=== PATIENT | female | born 1950 | race Hispanic/Latino ===

== ENCOUNTER 2016-08-30 08:50 | Outpatient (CLI) | payer MEDICARE | END 2016-08-30 08:51 | disposition home or self-care (01) | LOC: LAB 08:50 | PROVIDERS: ATTEND Internal Medicine | DX: I10 Essential (primary) hypertension (principal); J44.9 Chronic obstructive pulmonary disease, unspecified; M81.0 Age-related osteoporosis without current pathological fracture; E78.00 Pure hypercholesterolemia, unspecified; J45.909 Unspecified asthma, uncomplicated; F32.9 Major depressive disorder, single episode, unspecified; F41.9 Anxiety disorder, unspecified; Z79.899 Other long term (current) drug therapy; Z87.891 Personal history of nicotine dependence | CPT/HCPCS: 36415; 80061; 83036 ==

== ENCOUNTER 2017-07-08 20:54 | Inpatient (IN) | payer MEDICARE ==
[2017-07-08] MEDS ORDERED: ATROVENT IH ONE (21:16)
[2017-07-08] MEDS ORDERED: PROVENTIL IH ONE (21:16)
[2017-07-08 21:55] LABS: Basophils % (Auto) 0.1 % (0.0-1.8); Hematocrit 31.7 % (30.3-42.9); Hemoglobin 10.7 gm/dl (10.1-14.3); Lymphocytes # (Auto) 0.6 K/mm3 (1.2-5.4); Lymphocytes % (Auto) 7.6 % (13.4-35.0); Mean Corpuscular HGB Conc 34 % (30-34); Mean Corpuscular Hemoglobin 29 pg (28-32); Mean Corpuscular Volume 87 fl (79-97); Monocytes # (Auto) 0.3 K/mm3 (0.0-0.8); Monocytes % (Auto) 3.7 % (0.0-7.3); Platelet Count 376 K/mm3 (140-440); Red Blood Count 3.63 M/mm3 (3.65-5.03); Red Cell Distribution Width 16.5 % (13.2-15.2)
[2017-07-08 22:10] LABS: INR 0.8 (0.87-1.13)
[2017-07-08 22:16] LABS: Alanine Aminotransferase 12 units/L (7-56); Albumin 4.1 g/dL (3.9-5); BUN/Creatinine Ratio 23; Blood Urea Nitrogen 21 mg/dL (7-17); Calcium 8.9 mg/dL (8.4-10.2); Hemolysis Index 3
[2017-07-08] MEDS ORDERED: MAGNESIUM SULFATE 2GM/50ML 2 GM/50 ML BAG IV ONE (22:43)
--- NOTE | 2017-07-08 22:55 | Emergency Department Report ---
ED Shortness of Breath HPI - General Chief Complaint: Dyspnea/Respdistress Stated Complaint: SOB; WHEEZING Time Seen by Provider: 07/08/17 22:27 Source: patient Mode of arrival: Ambulatory Limitations: No Limitations - History of Present Illness Initial Comments: 67-year-old female with a past medical history of COPD and asthma currently on 2.5-3 L of home oxygen presents to the hospital with complaints of progressively worsening shortness of breath, cough, and wheezing for the last 3 weeks. She has been seeing her chocolate coater Dr. Brady. She recently completed a course of steroids and azithromycin within the last 3 weeks and was represcribed additional antibiotics and steroids on repeat visit on July 04. This time around patient was started on cefdinir 300 mg and a repeat prednisone taper. Patient complains of cough occasionally productive of white and light green sputum. She denies documented fever. No complaints of pain. Patient also states she has a history of the left lung nodule is being monitored by intermit and CAT scans by Dr. Brady. No leg edema or calf tenderness reported. PMD: Dr. Evy Law. - Related Data Home Medications Medication Instructions Recorded Confirmed Last Taken Albuterol Sulfate [Albuterol 0.63% 3 ml INHALATION TID 12/11/13 08/02/16 NEBS] Montelukast (Nf) [Singulair] 10 mg PO DAILY 12/11/13 08/02/16 07/30/16 Tiotropium [Spiriva] 1 cap INHALATION DAILY 12/11/13 08/02/16 07/30/16 clonazePAM 1 tab PO Q8HR PRN 12/11/13 08/04/16 07/30/16 ALBUTEROL Inhaler [ProAir HFA 2 puff IH QID PRN 02/02/16 08/02/16 07/30/16 Inhaler] Azelastine 0.1% (Nf) [Astelin (Nf)] 1 spray INNOSTRIL QAM 02/02/16 08/02/1604/16 Cholecalciferol (Vitamin D3) 2,000 unit PO QDAY 02/02/16 08/02/16 07/30/16 [Vitamin D3 2,000 unit] [place]-3S/Dha/Epa/Fish Oil/D3 1 each PO DAILY 02/02/16 08/02/16 07/30/16 [[place]-3 + D Softgel] Omeprazole 40 mg PO DAILY 02/02/16 08/02/16 07/30/16 Vitamin B Complex 1 tab PO DAILY 02/02/16 08/02/16 07/30/16 guaiFENesin [Mucinex] 600 mg PO QAM 02/02/16 08/02/16 07/30/16 Previous Rx's Medication Instructions Recorded Last Taken Type Prednisone [predniSONE 10 mg 10 mg PO .TAPER #1 tab.ds.pk 02/05/16 Unknown Rx (6-Day Pack, 21 Tabs)] Budesoni/Formotero 160-4.5(Nf) 2 puff IH BID 30 Days inha 08/11/16 Unknown Rx [Symbicort 160-4.5 (Nf)] Fluticasone [Flonase] 100 mcg NS QDAY PRN #1 bottle 08/11/16 Unknown Rx Prednisone [predniSONE 10 mg 10 mg PO .TAPER #1 tab.ds.pk 08/11/16 Unknown Rx (6-Day Pack, 21 Tabs)] Allergies Allergy/AdvReac Type Severity Reaction Status Date / Time codeine Allergy Nausea Verified 12/11/13 13:20 ED Review of Systems ROS: Stated complaint: SOB; WHEEZING Other details as noted in HPI Comment: All other systems reviewed and negative ED Past Medical Hx - Past Medical History Hx Hypertension: No Hx Arthritis: No Hx Asthma: Yes Hx COPD: Yes Hx Tuberculosis: No Hx HIV: No - Surgical History Hx Appendectomy: Yes - Social History Smoking Status: Never Smoker Substance Use Type: None - Medications Home Medications: Home Medications Medication Instructions Recorded Confirmed Last Taken Type Albuterol Sulfate [Albuterol 0.63% 3 ml INHALATION TID 12/11/13 08/02/16 History NEBS] Montelukast (Nf) [Singulair] 10 mg PO DAILY 12/11/13 08/02/16 07/30/16 History Tiotropium [Spiriva] 1 cap INHALATION DAILY 12/11/13 08/02/16 07/30/16 History clonazePAM 1 tab PO Q8HR PRN 12/11/13 08/04/16 07/30/16 History ALBUTEROL Inhaler [ProAir HFA 2 puff IH QID PRN 12/07/1308/02/16 07/30/16 History Inhaler] Azelastine 0.1% (Nf) [Astelin (Nf)] 1 spray INNOSTRIL QAM 02/02/16 08/02/1604/16 History Cholecalciferol (Vitamin D3) 2,000 unit PO QDAY 02/02/16 08/02/16 07/30/16 History [Vitamin D3 2,000 unit] [place]-3S/Dha/Epa/Fish Oil/D3 1 each PO DAILY 02/02/16 08/02/16 07/30/16 History [[place]-3 + D Softgel] Omeprazole 40 mg PO DAILY 02/02/16 08/02/16 07/30/16 History Vitamin B Complex 1 tab PO DAILY 02/02/16 08/02/16 07/30/16 History guaiFENesin [Mucinex] 600 mg PO QAM 02/02/16 08/02/16 07/30/16 History Prednisone [predniSONE 10 mg 10 mg PO .TAPER #1 tab.ds.pk 02/05/16 08/02/16 Unknown Rx (6-Day Pack, 21 Tabs)] Budesoni/Formotero 160-4.5(Nf) 2 puff IH BID 30 Days inha 08/11/16 Unknown Rx [Symbicort 160-4.5 (Nf)] Fluticasone [Flonase] 100 mcg NS QDAY PRN #1 bottle 08/11/16 Unknown Rx Prednisone [predniSONE 10 mg 10 mg PO .TAPER #1 tab.ds.pk 08/11/16 Unknown Rx (6-Day Pack, 21 Tabs)] ED Physical Exam - General Limitations: No Limitations - Other Other exam information: General: No limitations, patient is alert in no acute distress Head exam: Atraumatic, normocephalic Eyes exam: Normal appearance, pupils equal reactive to light, extraocular movements intact ENT: Moist mucous membrane, normal oropharynx Neck exam: Normal inspection, full range of motion, no meningismus nontender Respiratory exam: Bilateral wheezing, mild tachypnea, no accessory muscle use. Satting 97% on 3 L of supplemental oxygen Cardiovascular: Normal rate and rhythm, normal heart sounds Abdomen: Soft, nondistended, and nontender, with normal bowel sounds, no rebound, or guarding Extremity: Full range of motion normal inspection no deformity, no calf tenderness or edema Back: Normal Inspection, full range of motion, no tenderness Neurologic: Alert, oriented x3, cranial nerves intact, no motor or sensory deficit Psychiatric: normal affect, normal mood Skin: Warm, dry, intact ED Course Vital Signs 07/08/17 07/08/17 07/08/17 20:58 21:11 22:48 Temperature 98.4 F 98.4 F Pulse Rate 111 H 115 H Pulse Rate [ 86 Posterior Bilateral Throughout] Respiratory 16 16 Rate Respiratory 20 Rate [Posterior Bilateral Throughout] Blood Pressure 144/65 144/68 O2 Sat by Pulse 87 88 Oximetry - Consultations Consultation #1: 07/08/17 23:[address] Brady ordered but I did not discuss patient's case. Patient does not need emergent pulmonary consultation therefore could be consulted during admission ED Medical Decision Making - Lab Data Result diagrams: 07/08/17 21:29 07/08/17 21:29 Lab Results 07/08/17 07/08/17 07/08/17 Range/Units 21:29 21:29 21:29 WBC 8.4 (4.5-11.0) K/mm3 RBC 3.63 L (3.65-5.03) M/mm3 Hgb 10.7 (10.1-14.3) gm/dl Hct 31.7 (30.3-42.9) % MCV 87 (79-97) fl MCH 29 (28-32) pg MCHC 34 (30-34) % RDW 16.5 H (13.2-15.2) % Plt Count 376 (140-440) K/mm3 Lymph % (Auto) 7.6 L (13.4-35.0) % [place] % (Auto) 3.7 (0.0-7.3) % Eos % (Auto) 0.0 (0.0-4.3) % Baso % (Auto) 0.1 (0.0-1.8) % Lymph # 0.6 L (1.2-5.4) K/mm3 [place] # 0.3 (0.0-0.8) K/mm3 Eos # 0.0 (0.0-0.4) K/mm3 Baso # 0.0 (0.0-0.1) K/mm3 Seg Neutrophils % 88.6 H (40.0-70.0) % Seg Neutrophils # 7.5 (1.8-7.7) K/mm3 PT 11.4 L (12.2-14.9) Sec. INR 0.80 L (0.87-1.13) Sodium 143 (137-145) mmol/L Potassium 4.0 (3.6-5.0) mmol/L Chloride 96.9 L (98-107) mmol/L Carbon Dioxide 33 H (22-30) mmol/L Anion Gap 17 mmol/L BUN 21 H (7-17) mg/dL Creatinine 0.9 (0.7-1.2) mg/dL Estimated GFR > 60 ml/min BUN/Creatinine Ratio 23 % Glucose 203 H (65-100) mg/dL Calcium 8.9 (8.4-10.2) mg/dL Total Bilirubin 0.20 (0.1-1.2) mg/dL AST 15 (5-40) units/L ALT 12 (7-56) units/L Alkaline Phosphatase 64 (35-129) units/L Troponin T < 0.010 (0.00-0.029) ng/mL Total Protein 6.7 (6.3-8.2) g/dL Albumin 4.1 (3.9-5) g/dL Albumin/Globulin Ratio 1.6 % - EKG Data -: EKG Interpreted by Ct EKG shows normal: sinus rhythm, axis (qrs 79), QRS complexes (qrsd 87), ST-T waves (no stemi/t inv) Rate: normal (96) - EKG Data When compared to previous EKG there are: no significant change - Radiology Data Radiology results: image reviewed (cxr: naf (offical report pending)) - Medical Decision Making In the ED patient treated with additional albuterol, aspirin, IV Solu-Medrol, and IV magnesium Patient has already been on antibiotics and steroids with outpatient and continues to have symptoms Due to continued symptoms and failed outpatient management patient be admitted to the hospital for further management and pulmonology consultation. - Differential Diagnosis COPD, pneumonia, asthma, bronchitis Critical Care Time: No Critical care attestation.: If time is entered above; I have spent that time in minutes in the direct care of this critically ill patient, excluding procedure time. ED Disposition Clinical Impression: COPD exacerbation, Failure of outpatient treatment Disposition: OP ADMIT IP TO THIS HOSP Is pt being admited?: Yes Condition: Stable Referrals: PRIMARY CARE, [Primary Care Provider] - 3-5 Days Time of Disposition: 23:12 (Dr Irving/hospitalist)
--- NOTE | 2017-07-08 23:43 | XRay Report ---
FINAL REPORT PROCEDURE: XR CHEST ROUTINE 2V TECHNIQUE: PA and lateral chest radiographs were obtained. CPT 23577 HISTORY: Shortness of breath. COMPARISON: Chest radiograph dated 08/01/2016 FINDINGS: Heart: Normal. Mediastinum/Vessels: Aortic tortuosity and calcification. Lungs/Pleural space: Hyperinflation. Minimal bibasilar linear opacities. Subtle 10 mm density about the left anterior 4th rib. Symmetric biapical pleural thickening Bony thorax: Osteopenia. Thoracic kyphosis. Mild to moderate compression thoracic vertebral body compression in the mid thoracic spine. Mild compression in the lower thoracic/upper lumbar spine. Other: IMPRESSION: Aortic tortuosity and calcification. Hyperinflation suggests obstructive physiology. Bibasilar linear opacities, consider atelectasis or mild fibrosis. Subtle density about the anterior left 4th rib, consider could be confluence of shadows, pulmonary nodule, or in the rib. Consider CT scan for further characterization if there is continued clinical concern.
[2017-07-08] MEDS ORDERED: SODIUM CHLORIDE FLUSH SYRINGE 10 ML IV PRN (23:45)
[2017-07-08] MEDS ORDERED: ZOFRAN IV PRN (23:45)
--- NOTE | 2017-07-08 23:47 | History and Physical Report ---
History of Present Illness Date of examination: 07/08/17 History of present illness: 67 year-old woman with a history of COPD on home oxygen came to the emergency room today she developed shortness of breath, cough productive of white phlegm. 3 weeks ago she was started on prednisone pack, with Z-Manuel, her symptoms improved mildly and was given another course of antibiotics and steroids stapled which she has just completed. Shortness of breath got worse today so she came to the emergency room for further evaluation Review Of Systems: Constitutional: no weight loss Ears, eyes, nose, mouth and throat: no nasal congestion, no nasal discharge, no sinus pressure, blurry vision, diplopia Neck: No neck pain or rigidity. Cardiovascular: no Chest pain, orthopnea, palpitations Respiratory: + shortness of breath, cough Gastrointestinal: no abdominal pain, hematochezia Genitourinary : no dysuria, frequency , hematuria Musculoskeletal: no muscle ache Integumentary: no rash, no pruritis Neurological: no parathesias, focal weakness Endocrine: no cold or heat intolerance, no polyuria or polydipsia Hematologic/Lymphatic: no easy bruising, no easy bleeding, no gland swelling Allergic/Immunologic: no urticaria, no angioedema. PAST SURGICAL HISTORY: Tonsillectomy, hysterectomy SOCIAL HISTORY: Denies tobacco, drugs, alcohol use FAMILY HISTORY: Hypertension Medications and Allergies Allergies Allergy/AdvReac Type Severity Reaction Status Date / Time codeine Allergy Nausea Verified 12/11/13 13:20 Home Medications Medication Instructions Recorded Confirmed Last Taken Type Albuterol Sulfate [Albuterol 0.63% 3 ml INHALATION TID 12/11/13 08/02/16 History NEBS] Montelukast (Nf) [Singulair] 10 mg PO DAILY 12/11/13 08/02/16 07/30/16 History Tiotropium [Spiriva] 1 cap INHALATION DAILY 12/11/13 08/02/16 07/30/16 History clonazePAM 1 tab PO Q8HR PRN 12/11/13 08/04/16 07/30/16 History ALBUTEROL Inhaler [ProAir HFA 2 puff IH QID PRN 02/02/16 08/02/16 07/30/16 History Inhaler] Azelastine 0.1% (Nf) [Astelin (Nf)] 1 spray INNOSTRIL QAM 02/02/16 08/02/1604/16 History Cholecalciferol (Vitamin D3) 2,000 unit PO QDAY 02/02/16 08/02/16 07/30/16 History [Vitamin D3 2,000 unit] [place]-3S/Dha/Epa/Fish Oil/D3 1 each PO DAILY 02/02/16 08/02/16 07/30/16 History [[place]-3 + D Softgel] Omeprazole 40 mg PO DAILY 02/02/16 08/02/16 07/30/16 History Vitamin B Complex 1 tab PO DAILY 02/02/16 08/02/16 07/30/16 History guaiFENesin [Mucinex] 600 mg PO QAM 02/02/16 08/02/16 07/30/16 History Prednisone [predniSONE 10 mg 10 mg PO .TAPER #1 tab.ds.pk 02/05/16 08/02/16 Unknown Rx (6-Day Pack, 21 Tabs)] Budesoni/Formotero 160-4.5(Nf) 2 puff IH BID 30 Days inha 08/11/16 Unknown Rx [Symbicort 160-4.5 (Nf)] Fluticasone [Flonase] 100 mcg NS QDAY PRN #1 bottle 08/11/16 Unknown Rx Prednisone [predniSONE 10 mg 10 mg PO .TAPER #1 tab.ds.pk 08/11/16 Unknown Rx (6-Day Pack, 21 Tabs)] Exam - Physical Exam Narrative exam: Gen. appearance: Patient lying in bed, no apparent distress HEENT: Normocephalic, atraumatic, pupils equally round and reactive to light, extraocular movement intact, and no sclericterus,. No JVD or thyromegaly or nodule,neck supple, no carotid bruit ,mucous membranes moist, no exudate or erythema Heart: S1, S2, regular rate and rhythm Lungs: Clear to auscultation bilaterally, breathing comfortable Abdomen: Positive bowel sounds, nontender, nondistended, no organomegaly Extremity: No edema, cyanosis, clubbing Skin: No rash, nodules, warm, dry Neuro: Oriented 3, cranial nerves II-12 intact, speech is fluent, motor and sensory intact - Constitutional Vitals: Temp Pulse Resp BP Pulse Ox 98.4 F 86 20 144/68 88 07/08/17 21:11 07/08/17 22:48 07/08/17 22:48 07/08/17 21:11 07/08/17 21:11 Results - Labs CBC & Chem 7: 07/08/17 21:29 07/08/17 21:29 Labs: Abnormal lab results 07/08/17 07/08/17 07/08/17 Range/Units 21:29 21:29 21:29 RBC 3.63 L (3.65-5.03) M/mm3 RDW 16.5 H (13.2-15.2) % Lymph % (Auto) 7.6 L (13.4-35.0) % Lymph # 0.6 L (1.2-5.4) K/mm3 Seg Neutrophils % 88.6 H (40.0-70.0) % PT 11.4 L (12.2-14.9) Sec. INR 0.80 L (0.87-1.13) Chloride 96.9 L (98-107) mmol/L Carbon Dioxide 33 H (22-30) mmol/L BUN 21 H (7-17) mg/dL Glucose 203 H (65-100) mg/dL Assessment and Plan Assessment Acute COPD exacerbation Osteoporosis Plan Admit to medicine Start high-dose steroids, nebulizer treatment DVT prophylaxis
[2017-07-09 00:26] LABS: Bilirubin,Urine NEG (Negative); Blood,Urine NEG (Negative); Color,Urine Yellow (Yellow); Mucus,Urine FEW /HPF; Protein,Urine <15 mg/dL mg/dL (Negative); Urobilinogen,Urine < 2.0 mg/dL (<2.0)
[2017-07-09] MEDS ORDERED: DUONEB *Not for PRN Use IH SCH (02:00)
[2017-07-09] MEDS ORDERED: DUONEB *Not for PRN Use IH ONE (02:18)
[2017-07-09 06:55] LABS: BUN/Creatinine Ratio 28; Blood Urea Nitrogen 17 mg/dL (7-17); Calcium 8.4 mg/dL (8.4-10.2); Hemolysis Index 7
[2017-07-09 07:03] LABS: Hematocrit 31.3 % (30.3-42.9); Hemoglobin 10.3 gm/dl (10.1-14.3); Lymphocytes % (Auto) 9.2 % (13.4-35.0); Mean Corpuscular HGB Conc 33 % (30-34); Mean Corpuscular Hemoglobin 29 pg (28-32); Mean Corpuscular Volume 88 fl (79-97); Mean Platelet Volume 7.5 fl (6-12); Monocytes % (Auto) 1.9 % (0.0-7.3); Platelet Count 361 K/mm3 (140-440); Red Blood Count 3.57 M/mm3 (3.65-5.03); Red Cell Distribution Width 16.2 % (13.2-15.2)
[2017-07-09 07:04] LABS: Lymphocytes # (Auto) 0.7 K/mm3 (1.2-5.4); Monocytes # (Auto) 0.1 K/mm3 (0.0-0.8)
[2017-07-09] MEDS: DUONEB *Not for PRN Use IH SCH ×4 (08:20→20:45)
[2017-07-09] MEDS ORDERED: LOVENOX SUB-Q SCH (10:00)
[2017-07-09] MEDS: SODIUM CHLORIDE FLUSH SYRINGE 10 ML IV SCH ×2 (11:03→21:56)
[2017-07-09] MEDS: LOVENOX SUB-Q SCH (11:03)
--- NOTE | 2017-07-09 12:52 | Progress Note ---
Assessment and Plan Assessment and plan: Acute on chronic respiratory failure due to COPD exacerbation. Supplemental Oxygen COPD exacerbation. Continue supplemental Oxygen, solu-medrol, Duoneb, Albuterol prn DVT prophylaxis with Lovenox Full code status History Interval history: Less shortness of brreath, No chest pain no fever Hospitalist Physical - Physical exam Narrative exam: General:Not in acute distress, lying in bed, HEENT: Normocephalic, atraumatic Neck:supple,no JVD Lungs: Decreased breath sounds, bilateral rhonchi, wheeze Heart:S1 and S2 regular, no murmurs, rubs or gallop Abd: soft, non tender,non distended, normal bowel sounds Ext: No edema, no clubbing or cyanosis Neuro:Awake,alert,oriented x 3, moves all extremities, Psych:normal mood - Constitutional Vitals: Temp Pulse Resp BP Pulse Ox 98.5 F 98 H 18 120/44 94 07/09/17 07:16 07/09/17 08:40 07/09/17 08:40 07/09/17 07:16 07/09/17 08:20 Results - Labs CBC & Chem 7: 07/09/17 06:13 07/09/17 06:13 Labs: Laboratory Last Values WBC 7.1 K/mm3 (4.5-11.0) 07/09/17 06:13 RBC 3.57 M/mm3 (3.65-5.03) L 07/09/17 06:13 Hgb 10.3 gm/dl (10.1-14.3) 07/09/17 06:13 Hct 31.3 % (30.3-42.9) 07/09/17 06:13 MCV 88 fl (79-97) 07/09/17 06:13 MCH 29 pg (28-32) 07/09/17 06:13 MCHC 33 % (30-34) 07/09/17 06:13 RDW 16.2 % (13.2-15.2) H 07/09/17 06:13 Plt Count 361 K/mm3 (140-440) 07/09/17 06:13 Lymph % (Auto) 9.2 % (13.4-35.0) L 07/09/17 06:13 [place] % (Auto) 1.9 % (0.0-7.3) 07/09/17 06:13 Eos % (Auto) 0.0 % (0.0-4.3) 07/09/17 06:13 Baso % (Auto) 0.0 % (0.0-1.8) 07/09/17 06:13 Lymph # 0.7 K/mm3 (1.2-5.4) L 07/09/17 06:13 [place] # 0.1 K/mm3 (0.0-0.8) 07/09/17 06:13 Eos # 0.0 K/mm3 (0.0-0.4) 07/09/17 06:13 Baso # 0.0 K/mm3 (0.0-0.1) 07/09/17 06:13 Seg Neutrophils % 88.9 % (40.0-70.0) H 07/09/17 06:13 Seg Neutrophils # 6.3 K/mm3 (1.8-7.7) 07/09/17 06:13 PT 11.4 Sec. (12.2-14.9) L 07/08/17 21:29 INR 0.80 (0.87-1.13) L 07/08/17 21:29 Sodium 142 mmol/L (137-145) 07/09/17 06:13 Potassium 4.3 mmol/L (3.6-5.0) 07/09/17 06:13 Chloride 100.0 mmol/L (98-107) 07/09/17 06:13 Carbon Dioxide 31 mmol/L (22-30) H 07/09/17 06:13 Anion Gap 15 mmol/L 07/09/17 06:13 BUN 17 mg/dL (7-17) 07/09/17 06:13 Creatinine 0.6 mg/dL (0.7-1.2) L 07/09/17 06:13 Estimated GFR > 60 ml/min 07/09/17 06:13 BUN/Creatinine Ratio 28 % 07/09/17 06:13 Glucose 146 mg/dL (65-100) H 07/09/17 06:13 Calcium 8.4 mg/dL (8.4-10.2) 07/09/17 06:13 Total Bilirubin 0.20 mg/dL (0.1-1.2) 07/08/17 21:29 AST 15 units/L (5-40) 07/08/17 21:29 ALT 12 units/L (7-56) 07/08/17 21:29 Alkaline Phosphatase 64 units/L (35-129) 07/08/17 21:29 Troponin T < 0.010 ng/mL (0.00-0.029) 07/08/17 21:29 Total Protein 6.7 g/dL (6.3-8.2) 07/08/17 21: Albumin 4.1 g/dL (3.9-5) 07/08/17 21:29 Albumin/Globulin Ratio 1.6 % 07/08/17 21:29 Urine Color Yellow (Yellow) 07/08/17 Unknown Urine Turbidity Clear (Clear) 07/08/17 Unknown Urine pH 5.0 (5.0-7.0) 07/08/17 Unknown Ur Specific [place] 1.019 (1.003-1.030) 07/08/17 Unknown Urine Protein <15 mg/dl mg/dL (Negative) 07/08/17 Unknown Urine Glucose (UA) Neg mg/dL (Negative) 07/08/17 Unknown Urine Ketones Tr mg/dL (Negative) 07/08/17 Unknown Urine Blood Neg (Negative) 07/08/17 Unknown Urine Nitrite Neg (Negative) 07/08/17 Unknown Urine Bilirubin Neg (Negative) 07/08/17 Unknown Urine Urobilinogen < 2.0 mg/dL (<2.0) 07/08/17 Unknown Ur Leukocyte Esterase Neg (Negative) 07/08/17 Unknown Urine WBC (Auto) 1.0 /HPF (0.0-6.0) 07/08/17 Unknown Urine RBC (Auto) 1.0 /HPF (0.0-6.0) 07/08/17 Unknown U Epithel Cells (Auto) < 1.0 /HPF (0-13.0) 07/08/17 Unknown Urine Mucus Few /HPF 07/08/17 Unknown
[2017-07-09] MEDS ORDERED: PROVENTIL IH PRN (16:27)
--- NOTE | 2017-07-09 17:24 | Consultation ---
History of Present Illness Consult date: 07/09/17 Reason for consult: dyspnea History of present illness: Mrs. Baca is a 67-year-old white female with known history of advance/ severe COPD being followed by Dr. holly in our office. Patient is on long- term oxygen therapy, multiple inhalers and nebulizer treatment at home. Patient apparently has not been doing well for last several days. Was seen in our office on last Tuesday. Was given a Solu-Medrol injection and was placed on antibiotics and steroids. However patient did not improve and came to the hospital emergency room and subsequently admitted to the hospital. Patient reports having mostly dry cough, has shortness of breath and extensive wheezing. Patient denied any chest pain, edema lower extremity. Or hemoptysis Past History Past Medical History: COPD Social history: smoking (patient is a former smoker quit 1 year ago) Family history: no significant family history Medications and Allergies Allergies Allergy/AdvReac Type Severity Reaction Status Date / Time codeine Allergy Nausea Verified 12/11/13 13:20 Home Medications Medication Instructions Recorded Confirmed Last Taken Type Albuterol Sulfate [Albuterol 0.63% 3 ml INHALATION TID 12/11/13 07/09/17 History NEBS] Montelukast (Nf) [Singulair] 10 mg PO DAILY 12/11/13 07/09/17 07/30/16 History Tiotropium [Spiriva] 1 cap INHALATION DAILY 12/11/13 07/09/17 07/30/16 History clonazePAM 1 tab PO Q8HR PRN 12/11/13 07/09/17 07/30/16 History ALBUTEROL Inhaler [ProAir HFA 2 puff IH QID PRN 02/02/16 07/09/17 07/30/16 History Inhaler] Azelastine 0.1% (Nf) [Astelin (Nf)] 1 spray INNOSTRIL QAM 02/02/16 07/09/1704/16 History Cholecalciferol (Vitamin D3) 2,000 unit PO QDAY 02/02/16 07/09/17 07/30/16 History [Vitamin D3 2,000 unit] [place]-3S/Dha/Epa/Fish Oil/D3 1 each PO DAILY 02/02/16 07/09/17 07/30/16 History [[place]-3 + D Softgel] Omeprazole 40 mg PO DAILY 02/02/16 07/09/17 07/30/16 History Vitamin B Complex 1 tab PO DAILY 02/02/16 07/09/17 07/30/16 History guaiFENesin [Mucinex] 600 mg PO QAM 02/02/16 07/09/17 07/30/16 History Prednisone [predniSONE 10 mg 10 mg PO .TAPER #1 tab.ds.pk 02/05/16 07/09/17 Unknown Rx (6-Day Pack, 21 Tabs)] Budesoni/Formotero 160-4.5(Nf) 2 puff IH BID 30 Days inha 08/11/16 07/09/17 Unknown Rx [Symbicort 160-4.5 (Nf)] Fluticasone [Flonase] 100 mcg NS QDAY PRN #1 bottle 08/11/16 07/09/17 Unknown Rx Prednisone [predniSONE 10 mg 10 mg PO .TAPER #1 tab.ds.pk 08/11/16 07/09/17 Unknown Rx (6-Day Pack, 21 Tabs)] Active Meds: Active Medications Acetaminophen (Tylenol) 650 mg PO Q4H PRN PRN Reason: Pain MILD(1-3)/Fever >100.5/OMREL Albuterol (Proventil) 2.5 mg IH Q4HRT PRN PRN Reason: Shortness Of Breath Albuterol/Ipratropium (Duoneb *Not For Prn Use*) 1 ampul IH Q6HRT [facility] Last Admin: 07/09/17 16:18 Dose: 1 ampul Enoxaparin Sodium (Lovenox) 40 mg SUB-Q QDAY@1000 [facility] Last Admin: 07/09/17 11:03 Dose: 40 mg Methylprednisolone Sodium Succinate (Solu-Medrol) 80 mg IV Q6HR [facility] Last Admin: 07/09/17 11:03 Dose: 80 mg Ondansetron HCl (Zofran) 4 mg IV Q8H PRN PRN Reason: Nausea And Vomiting Sodium Chloride (Sodium Chloride Flush Syringe 10 Ml) 10 ml IV BID [facility] Last Admin: 07/09/17 11:03 Dose: 10 ml Sodium Chloride (Sodium Chloride Flush Syringe 10 Ml) 10 ml IV PRN PRN PRN Reason: LINE FLUSH Review of Systems All systems: negative Breasts: deferred Respiratory: cough, shortness of breath, congestion, wheezing Physical Examination Vital signs: Vital Signs Temp Pulse Resp BP Pulse Ox 98.4 F 111 H 16 144/65 87 07/08/17 20:58 07/08/17 20:58 07/08/17 20:58 07/08/17 20:58 07/08/17 20:58 General appearance: no acute distress, alert Eyes: non-icteric ENT: oropharynx moist Neck: supple, no lymphadenopathy, no JVD Effort: normal Ascultation: Bilateral: diminished breath sounds, wheezes Cardiovascular: regular rate and rhythm Gastrointestinal: normoactive bowel sounds, soft, non-tender, non-distended Integumentary: normal Extremities: no cyanosis, no edema, pink and warm Musculoskeletal: no deformities normal mental status, non-focal exam mood appropriate Results - Laboratory Findings CBC and BMP: 07/09/17 06:13 07/09/17 06:13 PT/INR, D-dimer PT 11.4 Sec. (12.2-14.9) L 07/08/17 21:29 INR 0.80 (0.87-1.13) L 07/08/17 21:29 Abnormal lab findings: Abnormal Labs 07/08/17 07/08/17 07/08/17 21:29 21:29 21:29 RBC 3.63 L RDW 16.5 H Lymph % (Auto) 7.6 L Lymph # 0.6 L Seg Neutrophils % 88.6 H PT 11.4 L INR 0.80 L Chloride 96.9 L Carbon Dioxide 33 H BUN 21 H Creatinine Glucose 203 H 07/09/17 07/09/17 06:13 06:13 RBC 3.57 L RDW 16.2 H Lymph % (Auto) 9.2 L Lymph # 0.7 L Seg Neutrophils % 88.9 H PT INR Chloride Carbon Dioxide 31 H BUN Creatinine 0.6 L Glucose 146 H - Diagnostic Findings Chest x-ray: image reviewed (COPD no acute findings) Assessment and Plan Impression: COPD with acute exacerbation Acute bronchitis Chronic hypoxemia on home oxygen therapy. Recommendations: Continue with steroids however dose will be increased and patient would be placed on IV Solu-Medrol Continue antibiotic and nebulizer treatments and inhaled bronchodilators. DVT and GI prophylaxis Patient may benefit with pulmonary rehabilitation and this was discussed with patient and the daughter.
[2017-07-09] MEDS: TYLENOL PO PRN (21:52)
[2017-07-10] MEDS: DUONEB *Not for PRN Use IH SCH ×4 (01:13→20:07)
[2017-07-10] MEDS: TYLENOL PO PRN ×3 (09:20→17:16)
[2017-07-10] MEDS: LOVENOX SUB-Q SCH (09:21)
[2017-07-10] MEDS: SODIUM CHLORIDE FLUSH SYRINGE 10 ML IV SCH ×2 (09:21→22:04)
--- NOTE | 2017-07-10 10:37 | Progress Note ---
Assessment and Plan Assessment and plan: Acute on chronic respiratory failure due to COPD exacerbation. Still c/o shortness of breath Supplemental Oxygen COPD exacerbation. Continue supplemental Oxygen, solu-medrol, Duoneb q 6h, Albuterol prn DVT prophylaxis with Lovenox Full code status History Interval history: Still has shortness of brreath, No chest pain no fever Hospitalist Physical - Physical exam Narrative exam: General:Not in acute distress, lying in bed, HEENT: Normocephalic, atraumatic Neck:supple,no JVD Lungs: Decreased breath sounds, bilateral rhonchi, wheeze Heart:S1 and S2 regular, no murmurs, rubs or gallop Abd: soft, non tender,non distended, normal bowel sounds Ext: No edema, no clubbing or cyanosis Neuro:Awake,alert,oriented x 3, moves all extremities, Psych:normal mood - Constitutional Vitals: Temp Pulse Resp BP Pulse Ox 98.5 F 80 18 128/56 94 07/10/17 07:00 07/10/17 08:10 07/10/17 08:10 07/10/17 07:00 07/10/17 08:07 Results - Labs CBC & Chem 7: 07/09/17 06:13 07/09/17 06:13 Labs: Laboratory Last Values WBC 7.1 K/mm3 (4.5-11.0) 07/09/17 06:13 RBC 3.57 M/mm3 (3.65-5.03) L 07/09/17 06:13 Hgb 10.3 gm/dl (10.1-14.3) 07/09/17 06:13 Hct 31.3 % (30.3-42.9) 07/09/17 06:13 MCV 88 fl (79-97) 07/09/17 06:13 MCH 29 pg (28-32) 07/09/17 06:13 MCHC 33 % (30-34) 07/09/17 06:13 RDW 16.2 % (13.2-15.2) H 07/09/17 06:13 Plt Count 361 K/mm3 (140-440) 07/09/17 06:13 Lymph % (Auto) 9.2 % (13.4-35.0) L 07/09/17 06:13 [place] % (Auto) 1.9 % (0.0-7.3) 07/09/17 06:13 Eos % (Auto) 0.0 % (0.0-4.3) 07/09/17 06:13 Baso % (Auto) 0.0 % (0.0-1.8) 07/09/17 06:13 Lymph # 0.7 K/mm3 (1.2-5.4) L 07/09/17 06:13 [place] # 0.1 K/mm3 (0.0-0.8) 07/09/17 06:13 Eos # 0.0 K/mm3 (0.0-0.4) 07/09/17 06:13 Baso # 0.0 K/mm3 (0.0-0.1) 07/09/17 06:13 Seg Neutrophils % 88.9 % (40.0-70.0) H 07/09/17 06:13 Seg Neutrophils # 6.3 K/mm3 (1.8-7.7) 07/09/17 06:13 PT 11.4 Sec. (12.2-14.9) L 07/08/17 21:29 INR 0.80 (0.87-1.13) L 07/08/17 21:29 Sodium 142 mmol/L (137-145) 07/09/17 06:13 Potassium 4.3 mmol/L (3.6-5.0) 07/09/17 06:13 Chloride 100.0 mmol/L (98-107) 07/09/17 06:13 Carbon Dioxide 31 mmol/L (22-30) H 07/09/17 06:13 Anion Gap 15 mmol/L 07/09/17 06:13 BUN 17 mg/dL (7-17) 07/09/17 06:13 Creatinine 0.6 mg/dL (0.7-1.2) L 07/09/17 06:13 Estimated GFR > 60 ml/min 07/09/17 06:13 BUN/Creatinine Ratio 28 % 07/09/17 06:13 Glucose 146 mg/dL (65-100) H 07/09/17 06:13 Calcium 8.4 mg/dL (8.4-10.2) 07/09/17 06:13 Total Bilirubin 0.20 mg/dL (0.1-1.2) 07/08/17 21:29 AST 15 units/L (5-40) 07/08/17 21:29 ALT 12 units/L (7-56) 07/08/17 21: Alkaline Phosphatase 64 units/L (35-129) 07/08/17 21:29 Troponin T < 0.010 ng/mL (0.00-0.029) 07/08/17 21: Total Protein 6.7 g/dL (6.3-8.2) 07/08/17: Albumin 4.1 g/dL (3.9-5) 07/08/17: Albumin/Globulin Ratio 1.6 % 07/08/17: Urine Color Yellow (Yellow) 07/08/17 Unknown Urine Turbidity Clear (Clear) 07/08/17 Unknown Urine pH 5.0 (5.0-7.0) 07/08/17 Unknown Ur Specific [place] 1.019 (1.003-1.030) 07/08/17 Unknown Urine Protein <15 mg/dl mg/dL (Negative) 07/08/17 Unknown Urine Glucose (UA) Neg mg/dL (Negative) 07/08/17 Unknown Urine Ketones Tr mg/dL (Negative) 07/08/17 Unknown Urine Blood Neg (Negative) 07/08/17 Unknown Urine Nitrite Neg (Negative) 07/08/17 Unknown Urine Bilirubin Neg (Negative) 07/08/17 Unknown Urine Urobilinogen < 2.0 mg/dL (<2.0) 07/08/17 Unknown Ur Leukocyte Esterase Neg (Negative) 07/08/17 Unknown Urine WBC (Auto) 1.0 /HPF (0.0-6.0) 07/08/17 Unknown Urine RBC (Auto) 1.0 /HPF (0.0-6.0) 07/08/17 Unknown U Epithel Cells (Auto) < 1.0 /HPF (0-13.0) 07/08/17 Unknown Urine Mucus Few /HPF 07/08/17 Unknown
[2017-07-10] MEDS ORDERED: ASPIRIN PO ONE (12:55)
[2017-07-10 13:29] LABS: Creatine Kinase MB 4.4 ng/mL (0.0-4.0)
--- NOTE | 2017-07-10 13:39 | Event Note ---
Date: 07/17/17 Patient c/o left sided chest tightness. EKG done, normal sinus rhythm. Troponin , 1st set negative. Obtain serial Troponins. Remote Tele
--- NOTE | 2017-07-10 15:24 | Progress Note ---
Assessment and Plan Impression: COPD with acute exacerbation Acute bronchitis Chronic hypoxemia on home oxygen therapy. Chest pain rule out cardiac etiology. Recommendations: Continue with steroids however dose will be increased and patient would be placed on IV Solu-Medrol Continue antibiotic and nebulizer treatments and inhaled bronchodilators. EKG and troponin as ordered by hospitalist DVT and GI prophylaxis Patient may benefit with pulmonary rehabilitation and this was discussed with patient and the daughter. Subjective Date of service: 07/10/17 Interval history: Patient not feeling too well today complaining of left-sided precordial chest pain dull persistent sometime increasing with deep breathing or cough. Without any radiation. Has increased wheezing and shortness of breath Objective Vital Signs - 12hr 07/10/17 07/10/17 07/10/17 07:00 08:00 08:07 Temperature 98.5 F Pulse Rate 68 Pulse Rate [ 74 Anterior Bilateral Throughout] Respiratory 20 Rate Respiratory 18 Rate [Anterior Bilateral Throughout] Blood Pressure 128/56 [Right] O2 Sat by Pulse 98 94 Oximetry 07/10/17 07/10/17 07/10/17 08:10 10:00 14:00 Temperature Pulse Rate 68 Pulse Rate [ 80 76 Anterior Bilateral Throughout] Respiratory Rate Respiratory 18 18 Rate [Anterior Bilateral Throughout] Blood Pressure [Right] O2 Sat by Pulse Oximetry 07/10/17 14:07 Temperature Pulse Rate Pulse Rate [ 74 Anterior Bilateral Throughout] Respiratory Rate Respiratory 18 Rate [Anterior Bilateral Throughout] Blood Pressure [Right] O2 Sat by Pulse Oximetry Constitutional: no acute distress, alert Eyes: non-icteric ENT: oropharynx moist Neck: supple, no lymphadenopathy, no JVD Effort: normal Ascultation: Bilateral: diminished breath sounds, wheezes Cardiovascular: regular rate and rhythm Gastrointestinal: normoactive bowel sounds, soft, non-tender, non-distended Integumentary: normal Extremities: no cyanosis, no edema, pink and warm Neurologic: normal mental status, non-focal exam Psychiatric: mood appropriate CBC and BMP: 07/09/17 06:13 07/09/17 06:13 ABG, PT/INR, D-dimer: PT/INR, D-dimer PT 11.4 Sec. (12.2-14.9) L 07/08/17 21:29 INR 0.80 (0.87-1.13) L 07/08/17 21:29 Abnormal lab findings: Abnormal Labs 07/08/17 07/08/17 07/08/17 21:29 21:29 21:29 RBC 3.63 L RDW 16.5 H Lymph % (Auto) 7.6 L Lymph # 0.6 L Seg Neutrophils % 88.6 H PT 11.4 L INR 0.80 L Chloride 96.9 L Carbon Dioxide 33 H BUN 21 H Creatinine Glucose 203 H CK-MB (CK-2) CK-MB (CK-2) Rel Index 07/09/17 07/09/17 07/10/17 06:13 06:13 12:46 RBC 3.57 L RDW 16.2 H Lymph % (Auto) 9.2 L Lymph # 0.7 L Seg Neutrophils % 88.9 H PT INR Chloride Carbon Dioxide 31 H BUN Creatinine 0.6 L Glucose 146 H CK-MB (CK-2) 4.4 H CK-MB (CK-2) Rel Index 10.7 H
[2017-07-11] MEDS: DUONEB *Not for PRN Use IH SCH ×4 (02:28→20:09)
[2017-07-11] MEDS: LOVENOX SUB-Q SCH (10:24)
[2017-07-11] MEDS: SODIUM CHLORIDE FLUSH SYRINGE 10 ML IV SCH ×2 (10:26→22:00)
[2017-07-11] MEDS ORDERED: FLONASE NS PRN (10:39)
--- NOTE | 2017-07-11 10:41 | Progress Note ---
Assessment and Plan Assessment and plan: Acute on chronic respiratory failure due to COPD exacerbation. Still c/o shortness of breath Supplemental Oxygen COPD exacerbation. Still has shortness of breath, wheezing. Will increase solu-medrol to 80mg iv q8h Continue supplemental Oxygen, Duoneb q 6h, Albuterol prn Add Montelukast, Symbicort. Chest tightness cardiac enzymes neg, EKG no changes Will do stress test when better likely in 1-2 days. DVT prophylaxis with Lovenox Full code status History Interval history: Still has shortness of breath, Had chest tightness yesterday, improved no fever Hospitalist Physical - Physical exam Narrative exam: General:Not in acute distress, lying in bed, HEENT: Normocephalic, atraumatic Neck:supple,no JVD Lungs: Decreased breath sounds, bilateral rhonchi, wheeze Heart:S1 and S2 regular, no murmurs, rubs or gallop Abd: soft, non tender,non distended, normal bowel sounds Ext: No edema, no clubbing or cyanosis Neuro:Awake,alert,oriented x 3, moves all extremities, Psych:normal mood - Constitutional Vitals: Temp Pulse Resp BP Pulse Ox 98.4 F 80 20 136/61 96 07/11/17 07:21 07/11/17 08:00 07/11/17 08:00 07/11/17 07:21 07/11/17 07:50 Results - Labs CBC & Chem 7: 07/09/17 06:13 07/09/17 06:13 Labs: Laboratory Last Values WBC 7.1 K/mm3 (4.5-11.0) 07/09/17 06:13 RBC 3.57 M/mm3 (3.65-5.03) L 07/09/17 06:13 Hgb 10.3 gm/dl (10.1-14.3) 07/09/17 06:13 Hct 31.3 % (30.3-42.9) 07/09/17 06:13 MCV 88 fl (79-97) 07/09/17 06:13 MCH 29 pg (28-32) 07/09/17 06:13 MCHC 33 % (30-34) 07/09/17 06:13 RDW 16.2 % (13.2-15.2) H 07/09/17 06:13 Plt Count 361 K/mm3 (140-440) 07/09/17 06:13 Lymph % (Auto) 9.2 % (13.4-35.0) L 07/09/17 06:13 [place] % (Auto) 1.9 % (0.0-7.3) 07/09/17 06:13 Eos % (Auto) 0.0 % (0.0-4.3) 07/09/17 06:13 Baso % (Auto) 0.0 % (0.0-1.8) 07/09/17 06:13 Lymph # 0.7 K/mm3 (1.2-5.4) L 07/09/17 06:13 [place] # 0.1 K/mm3 (0.0-0.8) 07/09/17 06:13 Eos # 0.0 K/mm3 (0.0-0.4) 07/09/17 06:13 Baso # 0.0 K/mm3 (0.0-0.1) 07/09/17 06:13 Seg Neutrophils % 88.9 % (40.0-70.0) H 07/09/17 06:13 Seg Neutrophils # 6.3 K/mm3 (1.8-7.7) 07/09/17 06:13 PT 11.4 Sec. (12.2-14.9) L 07/08/17 21:29 INR 0.80 (0.87-1.13) L 07/08/17 21:29 Sodium 142 mmol/L (137-145) 07/09/17 06:13 Potassium 4.3 mmol/L (3.6-5.0) 07/09/17 06:13 Chloride 100.0 mmol/L (98-107) 07/09/17 06:13 Carbon Dioxide 31 mmol/L (22-30) H 07/09/17 06:13 Anion Gap 15 mmol/L 07/09/17 06:13 BUN 17 mg/dL (7-17) 07/09/17 06:13 Creatinine 0.6 mg/dL (0.7-1.2) L 07/09/17 06:13 Estimated GFR > 60 ml/min 07/09/17 06:13 BUN/Creatinine Ratio 28 % 07/09/17 06:13 Glucose 146 mg/dL (65-100) H 07/09/17 06:13 Calcium 8.4 mg/dL (8.4-10.2) 07/09/17 06:13 Total Bilirubin 0.20 mg/dL (0.1-1.2) 07/08/17 21:29 AST 15 units/L (5-40) 07/08/17 21:29 ALT 12 units/L (7-56) 07/08/17 21:29 Alkaline Phosphatase 64 units/L (35-129) 07/08/17 21:29 Total Creatine Kinase 39 units/L (30-135) 07/11/17 04:56 CK-MB (CK-2) 4.0 ng/mL (0.0-4.0) 07/11/17 04:56 CK-MB (CK-2) Rel Index 10.2 (0-4) H 07/11/17 04:56 Troponin T < 0.010 ng/mL (0.00-0.029) 07/11/17 04:56 Total Protein 6.7 g/dL (6.3-8.2) 07/08/17 21:29 Albumin 4.1 g/dL (3.9-5) 07/08/17 21:29 Albumin/Globulin Ratio 1.6 % 07/08/17 21:29 Urine Color Yellow (Yellow) 07/08/17 Unknown Urine Turbidity Clear (Clear) 07/08/17 Unknown Urine pH 5.0 (5.0-7.0) 07/08/17 Unknown Ur Specific [place] 1.019 (1.003-1.030) 07/08/17 Unknown Urine Protein <15 mg/dl mg/dL (Negative) 07/08/17 Unknown Urine Glucose (UA) Neg mg/dL (Negative) 07/08/17 Unknown Urine Ketones Tr mg/dL (Negative) 07/08/17 Unknown Urine Blood Neg (Negative) 07/08/17 Unknown Urine Nitrite Neg (Negative) 07/08/17 Unknown Urine Bilirubin Neg (Negative) 07/08/17 Unknown Urine Urobilinogen < 2.0 mg/dL (<2.0) 07/08/17 Unknown Ur Leukocyte Esterase Neg (Negative) 07/08/17 Unknown Urine WBC (Auto) 1.0 /HPF (0.0-6.0) 07/08/17 Unknown Urine RBC (Auto) 1.0 /HPF (0.0-6.0) 07/08/17 Unknown U Epithel Cells (Auto) < 1.0 /HPF (0-13.0) 07/08/17 Unknown Urine Mucus Few /HPF 07/08/17 Unknown
[2017-07-11] MEDS ORDERED: NON-FORMULARY (Omeprazole [Omeprazole] 40 MG) PO SCH (10:45)
[2017-07-11] MEDS ORDERED: MONTELUKAST 10 MG PO SCH (10:45)
[2017-07-11] MEDS ORDERED: NON-FORMULARY (Budesoni/Formotero 160-4.5(Nf) 2 PUFF) IH SCH (10:45)
[2017-07-11] MEDS ORDERED: NON-FORMULARY (Cholecalciferol (Vitamin D3) [Vitamin D3 2,000 Unit] 2,000 UNIT) PO SCH (10:45)
[2017-07-11] MEDS: SPIRIVA IH SCH (13:03)
--- NOTE | 2017-07-11 13:10 | Query-Infection ---
Dear ___Alfonso Date:___07/11/2017 [employer] Machine Operator/CDS:__Maddy Phone#:_[phone] Exercise your independent professional judgment when responding to this query. Questions asked do not imply a particular answer is desired or expected. We greatly appreciate your clarification on this issue. Clinical Documentation States: 67 Year old female was admitted on 07/08/2017 for SOB. The Pulmonology (Dr. Gurrola) progress note on 07/10/2017 states "COPD with acute exacerbation Acute bronchitis." Clinical findings show: (please check applicable parameters) RR (07/09): 22 VT (07/08): 115 Infection, known /suspected, with some of the following indicators; Specify the infection: 3 General parameters [ ] Fever (core temp >38.30C or 100.40F) [ ] Hypothermia (core temp <36C) [X] Heart rate >90 bpm [X] Tachypnea: >20 bpm or pCO2 < 32 mmHg [ ] Altered mental status [ ] Significant edema / +ve fluid balance (>20 ml/kg 24 h) [ ] Hyperglycemia (Bl. glucose >110 mg/dl) w/o diabetes Inflammatory parameters [ ] Leukocytosis (white blood cell count >12,000/l) [ ] Leukopenia (white blood cell count <4,000/l) [ ] Bandemia (immature WBC > 10%) [ ] Leucocyte Left Shift [ ] Plasma procalcitonin>2 SD above the normal value Hemodynamic and tissue perfusion parameters [ ] Arterial hypotension(SBP <90 mmHg, MAP <70 mmHg,or a SBP drop >40 mmHg in adults) [ ] Hyperlactatemia (>3 mmol/l) [ ] Anion Gap (> 11mEG/l) [ ] Decreased capillary refill or mottling Organ dysfunction parameters [ ] Arterial hypoxemia (PaO2/FIO2 <300) [ ] Creatinine increase =0.5 mg/dl [ ] Acute oliguria (urine output <0.5 ml | kg |h or 45 mM/l for at least 2 hrs) [ ] Coagulation abnormalities (INR >1.5 or activated partial thromboplastin time >60 s) [ ] Ileus (absent cody wel sounds) [ ] Thrombocytopenia (platelet count <100,000/l) [ ] Hyperbilirubinemia (plasma total bilirubin >4 mg/dl) According to the clinical indications above, can Bacteremia be further specified? If so, please indicate below and in your Progress Notes and/ or Discharge Summary. Indicate if the condition was present on admission. PHYSICIAN RESPONSE: [ ] Sepsis [ ] Severe Sepsis [ ] Septic Shock [ ] Septicemia [ ] Sepsis now resolved [ ] SIRS due to non-infectious cause with organ dysfunction [x ] SIRS due to non-infectious cause without organ dysfunction [ ] Other: [ ] Comment/Explanation: Present on Admission: [x ] Yes (Y) [ ] Clinically undeterminable (W) [ ] No (N) [ ] Ruled Out Please also document response in your Progress Notes and/or Discharge Summary and indicate if the condition was present on admission Notes: SIRS/ SIRS WITH ORGAN DYSFUNCTION Systemic inflammatory response syndrome (SIRS) generally refers to the systemic response to trauma/de anda or other insult such as Acute Myocardial Infarction, Acute Pancreatitis, and Major Surgery with symptoms including fever, tachycardia , tachypnea, and leukocytosis (1). BACTEREMIA Presence of viable bacteria in the circulating blood (2). This term is reserved for patients that do not manifest above SIRS response. SEPTICEMIA Generally refers to a systemic disease associated with the presence of pathological microorganisms or toxins in the blood, which can include bacteria, viruses, fungi or other organisms (1). SEPSIS Generally refers to SIRS due infection (1). SEVERE SEPSIS Generally refers to sepsis associated with acute organ dysfunction (1). SEPTIC SHOCK Generally refers to circulatory failure associated with severe sepsis (2), and defined as hypotension or hypoperfusion despite adequate fluid resuscitation (1 hour) (3). REFERENCES: 1. [place] [employer]/Society of Critical Care Medicine Consensus Conference. Definitions for sepsis and organ failure and guidelines for the use of innovative therapies in sepsis. Critical Care Med 1992;20:864 - 74. 2. Silvestre queen MM, Livia MP, Miguel Angel VANDANA, Woodrow E, Nikolas D, Spike D, Waldo J, Pat SM , Genaro GONZALEZ, Isra G; International Sepsis Definitions Conference. 2001 SCCM/ESICM/ACCP/ATS/SIS International Sepsis Definitions Conference. Intensive Care Med. 2003 May;29(4):530-8. Epub 2002May 25. Review. PubMed PMID:[id number] 3. ICD-9-CM Official Guidelines for Coding and Reporting 4. Medscape Drugs, Diseases and Procedures references 5. [employer] Textbook of Internal Medicine. 18th Edition MTDD
[2017-07-11] MEDS: SINGULAIR PO SCH (14:04)
[2017-07-11] MEDS: VITAMIN D3 PO SCH (14:04)
[2017-07-11] MEDS: PROTONIX PO SCH (14:05)
--- NOTE | 2017-07-11 15:03 | Progress Note ---
Assessment and Plan COPD with acute exacerbation Acute bronchitis Chronic hypoxemia on home oxygen therapy. Chest pain rule out cardiac etiology. High CK's, normal troponins. See hospital medicine notes, plan Rec Continue DouNeb q 4 hr IV steroids Continue ABX's Monitor chest Sx's Oxygen support, keep O2 sat's > 90-92% DVT prophylaxis Possible SPN on CXR ,consider Chest CT when feasible,if none done recently Subjective Date of service: 07/11/17 Interval history: Some chest tightness. getting her nebs on rounds. No fever.No chest pain Objective Vital Signs - 12hr 07/11/17 07/11/17 07/11/17 07:21 07:50 08:00 Temperature 98.4 F Pulse Rate 76 Pulse Rate [ 72 80 Anterior Bilateral Throughout] Respiratory 20 Rate Respiratory 22 20 Rate [Anterior Bilateral Throughout] Blood Pressure 136/61 O2 Sat by Pulse 92 96 Oximetry 07/11/17 07/11/17 07/11/17 13:06 14:45 14:55 Temperature 98.3 F Pulse Rate 86 Pulse Rate [ 72 80 Anterior Bilateral Throughout] Respiratory 22 Rate Respiratory 20 20 Rate [Anterior Bilateral Throughout] Blood Pressure 120/56 O2 Sat by Pulse 94 Oximetry Constitutional: no acute distress, alert Eyes: non-icteric ENT: oropharynx moist Neck: supple, no lymphadenopathy, no JVD Effort: normal Ascultation: Bilateral: diminished breath sounds, wheezes Cardiovascular: regular rate and rhythm Gastrointestinal: normoactive bowel sounds, soft, non-tender, non-distended Integumentary: normal Extremities: no cyanosis, no edema, pink and warm Neurologic: normal mental status, non-focal exam Psychiatric: mood appropriate CBC and BMP: 07/09/17 06:13 07/09/17 06:13 ABG, PT/INR, D-dimer: PT/INR, D-dimer PT 11.4 Sec. (12.2-14.9) L 07/08/17 21:29 INR 0.80 (0.87-1.13) L 07/08/17 21:29 Abnormal lab findings: Abnormal Labs 07/08/17 07/08/17 07/08/17 21:29 21:29 21:29 RBC 3.63 L RDW 16.5 H Lymph % (Auto) 7.6 L Lymph # 0.6 L Seg Neutrophils % 88.6 H PT 11.4 L INR 0.80 L Chloride 96.9 L Carbon Dioxide 33 H BUN 21 H Creatinine Glucose 203 H CK-MB (CK-2) CK-MB (CK-2) Rel Index 07/09/17 07/09/17 07/10/17 06:13 06:13 12:46 RBC 3.57 L RDW 16.2 H Lymph % (Auto) 9.2 L Lymph # 0.7 L Seg Neutrophils % 88.9 H PT INR Chloride Carbon Dioxide 31 H BUN Creatinine 0.6 L Glucose 146 H CK-MB (CK-2) 4.4 H CK-MB (CK-2) Rel Index 10.7 H 07/11/17 04:56 RBC RDW Lymph % (Auto) Lymph # Seg Neutrophils % PT INR Chloride Carbon Dioxide BUN Creatinine Glucose CK-MB (CK-2) CK-MB (CK-2) Rel Index 10.2 H Chest x-ray: report reviewed
[2017-07-11] MEDS: BROVANA NEBU IH SCH (20:08)
[2017-07-11] MEDS: PULMICORT IH SCH (20:09)
[2017-07-12] MEDS: DUONEB *Not for PRN Use IH SCH ×4 (05:52→20:25)
[2017-07-12 06:13] LABS: Hematocrit 34.2 % (30.3-42.9); Hemoglobin 11.7 gm/dl (10.1-14.3); Mean Corpuscular HGB Conc 34 % (30-34); Mean Corpuscular Hemoglobin 29 pg (28-32); Mean Corpuscular Volume 85 fl (79-97); Platelet Count 463 K/mm3 (140-440); Red Cell Distribution Width 16.5 % (13.2-15.2)
[2017-07-12 06:42] LABS: BUN/Creatinine Ratio 45; Blood Urea Nitrogen 27 mg/dL (7-17); Calcium 8.4 mg/dL (8.4-10.2); Hemolysis Index 7
[2017-07-12] MEDS ORDERED: LEXISCAN IV ONE (09:35)
[2017-07-12] MEDS: PULMICORT IH SCH ×2 (09:56→20:25)
[2017-07-12] MEDS: BROVANA NEBU IH SCH ×2 (09:56→20:25)
[2017-07-12] MEDS ORDERED: AZELASTINE 0.1% InNostril SCH (10:00)
--- NOTE | 2017-07-12 13:50 | Progress Note ---
Assessment and Plan Imp: 1. Severe centrilobular emphysema 2. COPD exac. 3. A/C respiratory failure, hypoxia 4. Acute bronchitis 5. Chest tightness, probably due to above 6. SUMIT Pulm nodule; stable > 1 year on office xrays Rec: 1. Decrease Solumedrol but not ready for Prednisone yet; still tight on exam 2. Add Rocephin given green sputum 3. Check ABG on O2 4. Consider CT chest w/o contrast at some point 5. Continue nebs/bronchodilators Plan of care reviewed with patient, she understands/agrees Subjective Date of service: 07/12/17 Principal diagnosis: COPD exac. Interval history: Stress test canceled due to COPD/SOB. Still with SOB, wheezing. Coughing up some green sputum. + Chest tightness. Active Medications Acetaminophen (Tylenol) 650 mg PO Q4H PRN PRN Reason: Pain MILD(1-3)/Fever >100.5/MOREL Last Admin: 07/10/17 17:16 Dose: 650 mg Albuterol (Proventil) 2.5 mg IH Q4HRT PRN PRN Reason: Shortness Of Breath Albuterol/Ipratropium (Duoneb *Not For Prn Use*) 1 ampul IH Q6HRT [facility] Last Admin: 07/12/17 09:57 Dose: Not Given Arformoterol Tartrate (Brovana Nebu) 15 mcg IH Q12HRT [facility] Last Admin: 07/12/17 09:56 Dose: 15 mcg Budesonide (Pulmicort) 1 mg IH Q12HRT [facility] Last Admin: 07/12/17 09:56 Dose: 1 mg Cholecalciferol (Vitamin D3) 2,000 unit PO QDAY [facility] Last Admin: 07/11/17 14:04 Dose: 2,000 unit Clonazepam (Klonopin) 0.5 mg PO Q8HR PRN PRN Reason: Anxiety Last Admin: 07/12/17 12:45 Dose: 0.5 mg Enoxaparin Sodium (Lovenox) 40 mg SUB-Q QDAY@1000 [facility] Last Admin: 07/11/17 10:24 Dose: 40 mg Fluticasone Propionate (Flonase) 100 mcg NS QDAY PRN PRN Reason: Congestion Guaifenesin (Mucinex Er) 600 mg PO QAM [facility] Ceftriaxone Sodium 1 gm/ (Sodium Chloride) 20 mls @ 20 mls/10 min IV Q24HR [facility] ; Protocol Methylprednisolone Sodium Succinate (Solu-Medrol) 40 mg IV Q8HR [facility] Miscellaneous Medication (Azelastine 0.1% (Nf)) 1 spray InNostril QAM [facility] Montelukast Sodium (Singulair) 10 mg PO QDAY [facility] Last Admin: 07/11/17 14:04 Dose: 10 mg Ondansetron HCl (Zofran) 4 mg IV Q8H PRN PRN Reason: Nausea And Vomiting Pantoprazole Sodium (Protonix) 40 mg PO DAILY [facility] Last Admin: 07/11/17 14:05 Dose: 40 mg Sodium Chloride (Sodium Chloride Flush Syringe 10 Ml) 10 ml IV BID [facility] Last Admin: 07/11/17 22:00 Dose: 10 ml Sodium Chloride (Sodium Chloride Flush Syringe 10 Ml) 10 ml IV PRN PRN PRN Reason: LINE FLUSH Tiotropium [place] (Spiriva) 1 puff IH DAILY [facility] Last Admin: 07/11/17 13:03 Dose: Not Given Objective Vital Signs - 12hr 07/12/17 07/12/17 04:07 08:49 Temperature 97.5 F L 98.4 F Pulse Rate 74 71 Respiratory 18 20 Rate Blood Pressure 144/58 138/60 O2 Sat by Pulse 96 95 Oximetry Constitutional: no acute distress, alert Eyes: non-icteric ENT: oropharynx moist Neck: supple, no lymphadenopathy Effort: mildly labored Ascultation: Bilateral: wheezes (tight) Cardiovascular: regular rate and rhythm (no mrg) Gastrointestinal: normoactive bowel sounds, soft, non-tender, non-distended Integumentary: normal Extremities: no cyanosis, no edema, pink and warm Neurologic: normal mental status, non-focal exam, pupils equal and round, CN II- XII normal Psychiatric: mood appropriate, affect normal CBC and BMP: 07/12/17 05:48 07/12/17 05:48 ABG, PT/INR, D-dimer: PT/INR, D-dimer PT 11.4 Sec. (12.2-14.9) L 07/08/17 21:29 INR 0.80 (0.87-1.13) L 07/08/17 21:29 Abnormal lab findings: Abnormal Labs 07/08/17 07/08/17 07/08/17 21:29 21:29 21:29 WBC RBC 3.63 L RDW 16.5 H Plt Count Lymph % (Auto) 7.6 L Lymph # 0.6 L Seg Neutrophils % 88.6 H PT 11.4 L INR 0.80 L Chloride 96.9 L Carbon Dioxide 33 H BUN 21 H Creatinine Glucose 203 H CK-MB (CK-2) CK-MB (CK-2) Rel Index 07/09/17 07/09/17 07/10/17 06:13 06:13 12:46 WBC RBC 3.57 L RDW 16.2 H Plt Count Lymph % (Auto) 9.2 L Lymph # 0.7 L Seg Neutrophils % 88.9 H PT INR Chloride Carbon Dioxide 31 H BUN Creatinine 0.6 L Glucose 146 H CK-MB (CK-2) 4.4 H CK-MB (CK-2) Rel Index 10.7 H 07/11/17 07/12/17 07/12/17 04:56 05:48 05:48 WBC 11.8 H RBC RDW 16.5 H Plt Count 463 H Lymph % (Auto) Lymph # Seg Neutrophils % PT INR Chloride Carbon Dioxide BUN 27 H Creatinine 0.6 L Glucose 126 H CK-MB (CK-2) CK-MB (CK-2) Rel Index 10.2 H Chest x-ray: report reviewed, image reviewed (severe hyperinflation; ? tiny SUMIT nodule)
[2017-07-12] MEDS: LOVENOX SUB-Q SCH (13:54)
[2017-07-12] MEDS: VITAMIN D3 PO SCH (13:54)
[2017-07-12] MEDS: SINGULAIR PO SCH (13:54)
[2017-07-12] MEDS: PROTONIX PO SCH (13:55)
[2017-07-12] MEDS: SODIUM CHLORIDE FLUSH SYRINGE 10 ML IV SCH ×2 (13:55→21:15)
[2017-07-12] MEDS: SPIRIVA IH SCH (13:58)
--- NOTE | 2017-07-12 14:01 | Event Note ---
Date: 07/12/17 The patient presented to the stress lab with severe COPD, auscultation reveals significantly diminished breath sounds in all lung joseph, with scattered rhonchi and wheezes. Patient is therefore not appropriate candidate for Lexiscan stress testing. We will cancel stress test.
[2017-07-12] MEDS: MUCINEX ER PO SCH (15:17)
[2017-07-12] MEDS: cefTRIAXone 1 GM in NACL 0.9% 20 ML IV SCH (17:54)
[2017-07-13] MEDS: DUONEB *Not for PRN Use IH SCH ×4 (03:56→21:46)
--- NOTE | 2017-07-13 07:28 | Progress Note ---
Assessment and Plan Assessment and plan: Acute on chronic respiratory failure due to COPD exacerbation. Still c/o shortness of breath Supplemental Oxygen COPD exacerbation. Still has shortness of breath, wheezing. Will increase solu-medrol to 80mg iv q8h Continue supplemental Oxygen, Duoneb q 6h, Albuterol prn Add Montelukast, Symbicort. Chest tightness cardiac enzymes neg, EKG no changes Will do stress test when better likely in 1-2 days. Cancelled today DVT prophylaxis with Lovenox Full code status History Interval history: Patient seen and examined, no acute distress. Still with shortness of breath. Stress test cancelled due to the same. Hospitalist Physical - Physical exam Narrative exam: General:Not in acute distress, lying in bed, HEENT: Normocephalic, atraumatic Neck:supple,no JVD Lungs: Decreased breath sounds, bilateral rhonchi, wheeze Heart:S1 and S2 regular, no murmurs, rubs or gallop Abd: soft, non tender,non distended, normal bowel sounds Ext: No edema, no clubbing or cyanosis Neuro:Awake,alert,oriented x 3, moves all extremities, Psych:normal mood - Constitutional Vitals: Temp Pulse Resp BP Pulse Ox 98.4 F 69 18 127/58 95 07/13/17 02:05 07/13/17 02:05 07/13/17 02:05 07/13/17 02:05 07/13/17 02:05 Results - Labs CBC & Chem 7: 07/12/17 05:48 07/12/17 05:48 Labs: Laboratory Last Values WBC 11.8 K/mm3 (4.5-11.0) H 07/12/17 05:48 RBC 4.00 M/mm3 (3.65-5.03) 07/12/17 05:48 Hgb 11.7 gm/dl (10.1-14.3) 07/12/17 05:48 Hct 34.2 % (30.3-42.9) 07/12/17 05:48 MCV 85 fl (79-97) 07/12/17 05:48 MCH 29 pg (28-32) 07/12/17 05:48 MCHC 34 % (30-34) 07/12/17 05:48 RDW 16.5 % (13.2-15.2) H 07/12/17 05:48 Plt Count 463 K/mm3 (140-440) H 07/12/17 05:48 Lymph % (Auto) 9.2 % (13.4-35.0) L 07/09/17 06:13 [place] % (Auto) 1.9 % (0.0-7.3) 07/09/17 06:13 Eos % (Auto) 0.0 % (0.0-4.3) 07/09/17 06:13 Baso % (Auto) 0.0 % (0.0-1.8) 07/09/17 06:13 Lymph # 0.7 K/mm3 (1.2-5.4) L 07/09/17 06:13 [place] # 0.1 K/mm3 (0.0-0.8) 07/09/17 06:13 Eos # 0.0 K/mm3 (0.0-0.4) 07/09/17 06:13 Baso # 0.0 K/mm3 (0.0-0.1) 07/09/17 06:13 Seg Neutrophils % 88.9 % (40.0-70.0) H 07/09/17 06:13 Seg Neutrophils # 6.3 K/mm3 (1.8-7.7) 07/09/17 06:13 PT 11.4 Sec. (12.2-14.9) L 07/08/17 21:29 INR 0.80 (0.87-1.13) L 07/08/17 21:29 POC ABG pH 7.425 (7.35-7.45) 07/12/17 17:48 POC ABG pCO2 51.1 (35-45) H 07/12/17 17:48 POC ABG pO2 69 (80-105) L 07/12/17 17:48 POC ABG HCO3 33.5 07/12/17 17:48 POC ABG Total CO2 35 07/12/17 17:48 POC ABG O2 Sat 94 07/12/17 17:48 POC ABG Base Excess 9 07/12/17 17:48 FiO2 28 % 07/12/17 17:48 Sodium 141 mmol/L (137-145) 07/12/17 05:48 Potassium 4.5 mmol/L (3.6-5.0) 07/12/17 05:48 Chloride 100.6 mmol/L (98-107) 07/12/17 05:48 Carbon Dioxide 29 mmol/L (22-30) 07/12/17 05:48 Anion Gap 16 mmol/L 07/12/17 05:48 BUN 27 mg/dL (7-17) H 07/12/17 05:48 Creatinine 0.6 mg/dL (0.7-1.2) L 07/12/17 05:48 Estimated GFR > 60 ml/min 07/12/17 05:48 BUN/Creatinine Ratio 45 % 07/12/17 05:48 Glucose 126 mg/dL (65-100) H 07/12/17 05:48 Calcium 8.4 mg/dL (8.4-10.2) 07/12/17 05:48 Total Bilirubin 0.20 mg/dL (0.1-1.2) 07/08/17 21:29 AST 15 units/L (5-40) 07/08/17 21:29 ALT 12 units/L (7-56) 07/08/17 21:29 Alkaline Phosphatase 64 units/L (35-129) 07/08/17 21:29 Total Creatine Kinase 39 units/L (30-135) 07/11/17 04:56 CK-MB (CK-2) 4.0 ng/mL (0.0-4.0) 07/11/17 04:56 CK-MB (CK-2) Rel Index 10.2 (0-4) H 07/11/17 04:56 Troponin T < 0.010 ng/mL (0.00-0.029) 07/11/17 04:56 Total Protein 6.7 g/dL (6.3-8.2) 07/08/17 21:29 Albumin 4.1 g/dL (3.9-5) 07/08/17 21:29 Albumin/Globulin Ratio 1.6 % 07/08/17 21:29 Urine Color Yellow (Yellow) 07/08/17 Unknown Urine Turbidity Clear (Clear) 07/08/17 Unknown Urine pH 5.0 (5.0-7.0) 07/08/17 Unknown Ur Specific [place] 1.019 (1.003-1.030) 07/08/17 Unknown Urine Protein <15 mg/dl mg/dL (Negative) 07/08/17 Unknown Urine Glucose (UA) Neg mg/dL (Negative) 07/08/17 Unknown Urine Ketones Tr mg/dL (Negative) 07/08/17 Unknown Urine Blood Neg (Negative) 07/08/17 Unknown Urine Nitrite Neg (Negative) 07/08/17 Unknown Urine Bilirubin Neg (Negative) 07/08/17 Unknown Urine Urobilinogen < 2.0 mg/dL (<2.0) 07/08/17 Unknown Ur Leukocyte Esterase Neg (Negative) 07/08/17 Unknown Urine WBC (Auto) 1.0 /HPF (0.0-6.0) 07/08/17 Unknown Urine RBC (Auto) 1.0 /HPF (0.0-6.0) 07/08/17 Unknown U Epithel Cells (Auto) < 1.0 /HPF (0-13.0) 07/08/17 Unknown Urine Mucus Few /HPF 07/08/17 Unknown
[2017-07-13] MEDS: cefTRIAXone 1 GM in NACL 0.9% 20 ML IV SCH (09:10)
[2017-07-13] MEDS: LOVENOX SUB-Q SCH (09:10)
[2017-07-13] MEDS: SODIUM CHLORIDE FLUSH SYRINGE 10 ML IV SCH ×2 (09:10→22:06)
[2017-07-13] MEDS: PROTONIX PO SCH (09:11)
[2017-07-13] MEDS: MUCINEX ER PO SCH (09:11)
[2017-07-13] MEDS: VITAMIN D3 PO SCH (09:11)
[2017-07-13] MEDS: SINGULAIR PO SCH (09:11)
[2017-07-13] MEDS: BROVANA NEBU IH SCH ×2 (09:36→21:47)
[2017-07-13] MEDS: PULMICORT IH SCH ×2 (09:36→21:37)
--- NOTE | 2017-07-13 10:36 | Progress Note ---
Assessment and Plan Assessment and plan: 67 year-old woman with a history of COPD on home oxygen came to the emergency room today she developed shortness of breath, cough productive of white phlegm. 3 weeks ago she was started on prednisone pack, with Z-Manuel, her symptoms improved mildly and was given another course of antibiotics and steroids stapled which she has just completed. Shortness of breath got worse today so she came to the emergency room for further evaluation Acute on chronic respiratory failure with hypoxia due to COPD exacerbation. * Continue Solu-Medrol slow taper over required. Patient still tight on exam * Continue oxygen * Stress test" patient indicated at this time chest tightness likely secondary to severe COPD. COPD exacerbation. * As noted above. Continue current treatment included oxygen, home O2 evaluation prior to discharge * Agree with addition of Rocephin * We'll proceed with CT of the chest possibly in a.m. Patient rested and considerin Sg emotional tomorrow yesterday with stress test * Montelukast, Symbicort. Chest tightness * cardiac enzymes neg, EKG no changes * Low clinical indication and house at this time for stress test but this can be done outpatient Acute bronchitis * Rocephin added. Left lower lobe pulmonary nodule * Stable per her primary lab asst DVT prophylaxis with Lovenox Full code status Plan of care discussed with the patient also with cardiology team in detail they agree with treatment plan we'll continue current management. Pressure continues to require inpatient stay due to severe COPD exacerbation with exertional dyspnea with limited movements. History Interval history: Patient is seen today for: COPD exacerbation Seen and examined at bedside; 24hour events reviewed; nursing staff ; no adverse overnight events reported to me; she continues to have shortness of breath for though able to complete her sentences. She is now having productive cough. Denies any chest pain, nausea, vomiting, diarrhea No fever noted blood pressure controlled Hospitalist Physical - Physical exam Narrative exam: VITAL SIGNS: Reviewed. GENERAL: The patient appeared well nourished and normally developed. Vital signs as documented. HEAD: No signs of head trauma. EYES: Pupils are equal. Extraocular motions intact. EARS: Hearing grossly intact. MOUTH: Oropharynx is normal. NECK: No adenopathy, no JVD. CHEST: Chest with limited air entry but expiratory wheezes present. She continues to set up to be able to get good air in CARDIAC: Regular rate and rhythm. S1 and S2, without murmurs, gallops, or rubs. VASCULAR: No Edema. Peripheral pulses normal and equal in all extremities. ABDOMEN: Soft, without detectable tenderness. No sign of distention. No rebound or guarding, and no masses palpated. Bowel Sounds normal. MUSCULOSKELETAL: Good range of motion of all major joints. Extremities without clubbing, cyanosis or edema. NEUROLOGIC EXAM: Alert and oriented x 3. No focal sensory or strength deficits. Speech normal. Follows commands. PSYCHIATRIC: Mood normal. SKIN: No rash or lesions. - Constitutional Vitals: Temp Pulse Resp BP Pulse Ox 98.6 F 61 20 151/66 95 07/13/17 07:58 07/13/17 07:58 07/13/17 07:58 07/13/17 07:58 07/13/17 07:58 Results - Labs CBC & Chem 7: 07/12/17 05:48 07/12/17 05:48 Labs: Laboratory Last Values WBC 11.8 K/mm3 (4.5-11.0) H 07/12/17 05:48 RBC 4.00 M/mm3 (3.65-5.03) 07/12/17 05:48 Hgb 11.7 gm/dl (10.1-14.3) 07/12/17 05:48 Hct 34.2 % (30.3-42.9) 07/12/17 05:48 MCV 85 fl (79-97) 07/12/17 05:48 MCH 29 pg (28-32) 07/12/17 05:48 MCHC 34 % (30-34) 07/12/17 05:48 RDW 16.5 % (13.2-15.2) H 07/12/17 05:48 Plt Count 463 K/mm3 (140-440) H 07/12/17 05:48 Lymph % (Auto) 9.2 % (13.4-35.0) L 07/09/17 06:13 [place] % (Auto) 1.9 % (0.0-7.3) 07/09/17 06:13 Eos % (Auto) 0.0 % (0.0-4.3) 07/09/17 06:13 Baso % (Auto) 0.0 % (0.0-1.8) 07/09/17 06:13 Lymph # 0.7 K/mm3 (1.2-5.4) L 07/09/17 06:13 [place] # 0.1 K/mm3 (0.0-0.8) 07/09/17 06:13 Eos # 0.0 K/mm3 (0.0-0.4) 07/09/17 06:13 Baso # 0.0 K/mm3 (0.0-0.1) 07/09/17 06:13 Seg Neutrophils % 88.9 % (40.0-70.0) H 07/09/17 06:13 Seg Neutrophils # 6.3 K/mm3 (1.8-7.7) 07/09/17 06:13 PT 11.4 Sec. (12.2-14.9) L 07/08/17 21:29 INR 0.80 (0.87-1.13) L 07/08/17 21:29 POC ABG pH 7.425 (7.35-7.45) 07/12/17 17:48 POC ABG pCO2 51.1 (35-45) H 07/12/17 17:48 POC ABG pO2 69 (80-105) L 07/12/17 17:48 POC ABG HCO3 33.5 07/12/17 17:48 POC ABG Total CO2 35 07/12/17 17:48 POC ABG O2 Sat 94 07/12/17 17:48 POC ABG Base Excess 9 07/12/17 17:48 FiO2 28 % 07/12/17 17:48 Sodium 141 mmol/L (137-145) 07/12/17 05:48 Potassium 4.5 mmol/L (3.6-5.0) 07/12/17 05:48 Chloride 100.6 mmol/L (98-107) 07/12/17 05:48 Carbon Dioxide 29 mmol/L (22-30) 07/12/17 05:48 Anion Gap 16 mmol/L 07/12/17 05:48 BUN 27 mg/dL (7-17) H 07/12/17 05:48 Creatinine 0.6 mg/dL (0.7-1.2) L 07/12/17 05:48 Estimated GFR > 60 ml/min 07/12/17 05:48 BUN/Creatinine Ratio 45 % 07/12/17 05:48 Glucose 126 mg/dL (65-100) H 07/12/17 05:48 Calcium 8.4 mg/dL (8.4-10.2) 07/12/17 05:48 Total Bilirubin 0.20 mg/dL (0.1-1.2) 07/08/17 21:29 AST 15 units/L (5-40) 07/08/17 21:29 ALT 12 units/L (7-56) 07/08/17 21:29 Alkaline Phosphatase 64 units/L (35-129) 07/08/17 21:29 Total Creatine Kinase 39 units/L (30-135) 07/11/17 04:56 CK-MB (CK-2) 4.0 ng/mL (0.0-4.0) 07/11/17 04:56 CK-MB (CK-2) Rel Index 10.2 (0-4) H 07/11/17 04:56 Troponin T < 0.010 ng/mL (0.00-0.029) 07/11/17 04:56 Total Protein 6.7 g/dL (6.3-8.2) 07/08/17 21:29 Albumin 4.1 g/dL (3.9-5) 07/08/17 21:29 Albumin/Globulin Ratio 1.6 % 07/08/17 21:29 Urine Color Yellow (Yellow) 07/08/17 Unknown Urine Turbidity Clear (Clear) 07/08/17 Unknown Urine pH 5.0 (5.0-7.0) 07/08/17 Unknown Ur Specific [place] 1.019 (1.003-1.030) 07/08/17 Unknown Urine Protein <15 mg/dl mg/dL (Negative) 07/08/17 Unknown Urine Glucose (UA) Neg mg/dL (Negative) 07/08/17 Unknown Urine Ketones Tr mg/dL (Negative) 07/08/17 Unknown Urine Blood Neg (Negative) 07/08/17 Unknown Urine Nitrite Neg (Negative) 07/08/17 Unknown Urine Bilirubin Neg (Negative) 07/08/17 Unknown Urine Urobilinogen < 2.0 mg/dL (<2.0) 07/08/17 Unknown Ur Leukocyte Esterase Neg (Negative) 07/08/17 Unknown Urine WBC (Auto) 1.0 /HPF (0.0-6.0) 07/08/17 Unknown Urine RBC (Auto) 1.0 /HPF (0.0-6.0) 07/08/17 Unknown U Epithel Cells (Auto) < 1.0 /HPF (0-13.0) 07/08/17 Unknown Urine Mucus Few /HPF 07/08/17 Unknown
[2017-07-13] MEDS: SPIRIVA IH SCH (10:58)
--- NOTE | 2017-07-13 15:05 | Progress Note ---
Assessment and Plan Imp: 1. Severe centrilobular emphysema 2. COPD exac. 3. A/C respiratory failure, hypoxia 4. Acute bronchitis 5. Chest tightness, probably due to above 6. SUMIT Pulm nodule; stable > 1 year on office xrays Rec: 1. Solumedrol today; consider change to Prednisone 40mg in AM; will need prolonged taper at d/c 2. Added Rocephin given green sputum 3. Check ABG on O2 -> compensated chronic hypercapneic respiratory failure 4. Consider CT chest w/o contrast at some point re: nodule 5. Continue nebs/bronchodilators Plan of care reviewed with patient, she understands/agrees Subjective Date of service: 07/13/17 Principal diagnosis: COPD exac. Interval history: SOB and wheezing better today. Anxiety better. Coughing up some green sputum. Chest tightness resolved. Active Medications Acetaminophen (Tylenol) 650 mg PO Q4H PRN PRN Reason: Pain MILD(1-3)/Fever >100.5/MOREL Last Admin: 07/10/17 17:16 Dose: 650 mg Albuterol (Proventil) 2.5 mg IH Q4HRT PRN PRN Reason: Shortness Of Breath Albuterol/Ipratropium (Duoneb *Not For Prn Use*) 1 ampul IH Q6HRT [facility] Last Admin: 07/13/17 10:59 Dose: Not Given Arformoterol Tartrate (Brovana Nebu) 15 mcg IH Q12HRT [facility] Last Admin: 07/13/17 09:36 Dose: 15 mcg Budesonide (Pulmicort) 1 mg IH Q12HRT [facility] Last Admin: 07/13/17 09:36 Dose: 1 mg Cholecalciferol (Vitamin D3) 2,000 unit PO QDAY [facility] Last Admin: 07/13/17 09:11 Dose: 2,000 unit Clonazepam (Klonopin) 0.5 mg PO Q8HR PRN PRN Reason: Anxiety Last Admin: 07/13/17 09:31 Dose: 0.5 mg Enoxaparin Sodium (Lovenox) 40 mg SUB-Q QDAY@1000 [facility] Last Admin: 07/13/17 09:10 Dose: 40 mg Fluticasone Propionate (Flonase) 100 mcg NS QDAY PRN PRN Reason: Congestion Guaifenesin (Mucinex Er) 600 mg PO QAM [facility] Last Admin: 07/13/17 09:11 Dose: 600 mg Ceftriaxone Sodium 1 gm/ (Sodium Chloride) 20 mls @ 20 mls/10 min IV Q24HR [facility] ; Protocol Last Admin: 07/13/17 09:10 Dose: 20 mls/10 min Methylprednisolone Sodium Succinate (Solu-Medrol) 40 mg IV Q8HR [facility] Last Admin: 07/13/17 14:18 Dose: 40 mg Miscellaneous Medication (Azelastine 0.1% (Nf)) 1 spray [facility]ostril [facility] [place] [place] Montelukast Sodium (Singulair) 10 mg PO QDAY [facility] Last Admin: 07/13/17 09:11 Dose: 10 mg Ondansetron HCl (Zofran) 4 mg IV Q8H PRN PRN Reason: Nausea And Vomiting Pantoprazole Sodium (Protonix) 40 mg PO DAILY [facility] Last Admin: 07/13/17 09:11 Dose: 40 mg Sodium Chloride (Sodium Chloride Flush Syringe 10 Ml) 10 ml IV BID [facility] Last Admin: 07/13/17 09:10 Dose: 10 ml Sodium Chloride (Sodium Chloride Flush Syringe 10 Ml) 10 ml IV PRN PRN PRN Reason: LINE FLUSH Tiotropium [place] (Spiriva) 1 puff IH DAILY [facility] Last Admin: 07/13/17 10:58 Dose: 1 puff Objective Vital Signs - 12hr 07/13/17 07/13/17 07:58 10:00 Temperature 98.6 F Pulse Rate 61 Pulse Rate [ 70 Right Radial] Respiratory 20 20 Rate Blood Pressure 151/66 O2 Sat by Pulse 95 Oximetry Constitutional: no acute distress, alert Eyes: non-icteric ENT: oropharynx moist Neck: supple, no lymphadenopathy Effort: normal Ascultation: Bilateral: diminished breath sounds, wheezes (better) Cardiovascular: regular rate and rhythm (no mrg) Gastrointestinal: normoactive bowel sounds, soft, non-tender, non-distended Integumentary: normal Extremities: no cyanosis, no edema, pink and warm Neurologic: normal mental status, non-focal exam, pupils equal and round, CN II- XII normal Psychiatric: mood appropriate, affect normal CBC and BMP: 07/12/17 05:48 07/12/17 05:48 ABG, PT/INR, D-dimer: ABG POC ABG pH 7.425 (7.35-7.45) 07/12/17 17:48 POC ABG pCO2 51.1 (35-45) H 07/12/17 17:48 POC ABG pO2 69 (80-105) L 07/12/17 17:48 POC ABG HCO3 33.5 07/12/17 17:48 POC ABG Total CO2 35 07/12/17 17:48 POC ABG O2 Sat 94 07/12/17 17:48 PT/INR, D-dimer PT 11.4 Sec. (12.2-14.9) L 07/08/17 21:29 INR 0.80 (0.87-1.13) L 07/08/17 21:29 Abnormal lab findings: Abnormal Labs 07/08/17 07/08/17 07/08/17 21:29 21:29 21:29 WBC RBC 3.63 L RDW 16.5 H Plt Count Lymph % (Auto) 7.6 L Lymph # 0.6 L Seg Neutrophils % 88.6 H PT 11.4 L INR 0.80 L POC ABG pCO2 POC ABG pO2 Chloride 96.9 L Carbon Dioxide 33 H BUN 21 H Creatinine Glucose 203 H CK-MB (CK-2) CK-MB (CK-2) Rel Index 07/09/17 07/09/17 07/10/17 06:13 06:13 12:46 WBC RBC 3.57 L RDW 16.2 H Plt Count Lymph % (Auto) 9.2 L Lymph # 0.7 L Seg Neutrophils % 88.9 H PT INR POC ABG pCO2 POC ABG pO2 Chloride Carbon Dioxide 31 H BUN Creatinine 0.6 L Glucose 146 H CK-MB (CK-2) 4.4 H CK-MB (CK-2) Rel Index 10.7 H 07/11/17 07/12/17 07/12/17 04:56 05:48 05:48 WBC 11.8 H RBC RDW 16.5 H Plt Count 463 H Lymph % (Auto) Lymph # Seg Neutrophils % PT INR POC ABG pCO2 POC ABG pO2 Chloride Carbon Dioxide BUN 27 H Creatinine 0.6 L Glucose 126 H CK-MB (CK-2) CK-MB (CK-2) Rel Index 10.2 H 07/12/17 17:48 WBC RBC RDW Plt Count Lymph % (Auto) Lymph # Seg Neutrophils % PT INR POC ABG pCO2 51.1 H POC ABG pO2 69 L Chloride Carbon Dioxide BUN Creatinine Glucose CK-MB (CK-2) CK-MB (CK-2) Rel Index Chest x-ray: report reviewed, image reviewed
[2017-07-14] MEDS: DUONEB *Not for PRN Use IH SCH ×4 (03:20→20:21)
[2017-07-14] MEDS: BROVANA NEBU IH SCH ×2 (07:26→20:20)
[2017-07-14] MEDS: PULMICORT IH SCH ×2 (07:27→20:20)
[2017-07-14] MEDS: SPIRIVA IH SCH ×2 (07:27→09:10)
[2017-07-14] MEDS: cefTRIAXone 1 GM in NACL 0.9% 20 ML IV SCH (08:59)
[2017-07-14] MEDS: MUCINEX ER PO SCH (09:00)
[2017-07-14] MEDS: PROTONIX PO SCH (09:00)
[2017-07-14] MEDS: SINGULAIR PO SCH (09:00)
[2017-07-14] MEDS: VITAMIN D3 PO SCH (09:01)
[2017-07-14] MEDS: LOVENOX SUB-Q SCH (09:02)
[2017-07-14] MEDS: SODIUM CHLORIDE FLUSH SYRINGE 10 ML IV SCH ×2 (09:02→21:23)
[2017-07-14] MEDS: DELTASONE PO SCH (10:58)
--- NOTE | 2017-07-14 10:59 | Cat Scan Report ---
CT scan of chest without IV contrast: History: Pulmonary nodule. Findings: No endobronchial or mediastinal mass. No mediastinal, hilar or axillary adenopathy. No pleural pericardial effusion. Atherosclerotic thoracic aorta. There is 1.2 cm x 0.4 cm nodule identified at the left lung adjacent to the pleura on series 2 image 54 and series 3 image 107. Attenuation value is 5.6 Hounsfield unit. No definite additional nodules are identified. Evidence of COPD. No consolidation. Impression: Marked COPD. Ill-defined nodule left lung as detailed above.
--- NOTE | 2017-07-14 15:25 | Progress Note ---
Assessment and Plan Imp: 1. Severe centrilobular emphysema 2. COPD exac. 3. A/C respiratory failure, hypoxia 4. Acute bronchitis 5. Chest tightness, probably due to above 6. SUMIT Pulm nodules Rec: 1. At d/c recommend prednisone 40mg x 3 days, 30mg x 3 days, 20mg x 3 days, 10mg x 3 days 2. Added Rocephin given green sputum; finish course of Omnicef at d/c 3. Check ABG on O2 -> compensated chronic hypercapneic respiratory failure 4. Continue nebs/bronchodilators 5. Reviewed CT chest; report is incorrect as there are 2 distinct nodules in the SUMIT; the more superior nodule is subcentimeter and has been present on plain film in the office dating back to 2015; there is a larger pleural-based 1.2 cm nodule that may be amenable to CT guided biopsy but, given risk for PTX, I would not consider this until her COPD exacerbation has completely resolved and she is back to usual compensated baseline; likely will proceed with PET as an outpatient first to obtain further data; d/w patient who agrees; she will f/ u with or PHIL after discharge Plan of care reviewed with patient, she understands/agrees Subjective Date of service: 07/14/17 Principal diagnosis: COPD exac. Interval history: SOB and wheezing better today. Anxiety better. Coughing up some green sputum. Chest tightness resolved. Able to ambulate in room. Active Medications Acetaminophen (Tylenol) 650 mg PO Q4H PRN PRN Reason: Pain MILD(1-3)/Fever >100.5/OMREL Last Admin: 07/10/17 17:16 Dose: 650 mg Albuterol (Proventil) 2.5 mg IH Q4HRT PRN PRN Reason: Shortness Of Breath Albuterol/Ipratropium (Duoneb *Not For Prn Use*) 1 ampul IH Q6HRT [facility] Last Admin: 07/14/17 13:54 Dose: 1 ampul Arformoterol Tartrate (Brovana Nebu) 15 mcg IH Q12HRT [facility] Last Admin: 07/14/17 07:26 Dose: 15 mcg Budesonide (Pulmicort) 1 mg IH Q12HRT [facility] Last Admin: 07/14/17 07:27 Dose: 1 mg Cholecalciferol (Vitamin D3) 2,000 unit PO QDAY [facility] Last Admin: 07/14/17 09:01 Dose: 2,000 unit Clonazepam (Klonopin) 0.5 mg PO Q8HR PRN PRN Reason: Anxiety Last Admin: 07/14/17 09:01 Dose: 0.5 mg Enoxaparin Sodium (Lovenox) 40 mg SUB-Q QDAY@1000 [facility] Last Admin: 07/14/17 09:02 Dose: 40 mg Fluticasone Propionate (Flonase) 100 mcg NS QDAY PRN PRN Reason: Congestion Guaifenesin (Mucinex Er) 600 mg PO QAM [facility] Last Admin: 07/14/17 09:00 Dose: 600 mg Ceftriaxone Sodium 1 gm/ (Sodium Chloride) 20 mls @ 20 mls/10 min IV Q24HR [facility] ; Protocol Last Admin: 07/14/17 08:59 Dose: 20 mls/10 min Miscellaneous Medication (Azelastine 0.1% (Nf)) 1 [place] [facility] [facility] [place]eluk[place] Sodium (Singulair) 10 mg PO QDAY [facility] Last Admin: 07/14/17 09:00 Dose: 10 mg Ondansetron HCl (Zofran) 4 mg IV Q8H PRN PRN Reason: Nausea And Vomiting Pantoprazole Sodium (Protonix) 40 mg PO DAILY [facility] Last Admin: 07/14/17 09:00 Dose: 40 mg Prednisone (Deltasone) 40 mg PO QDAY [facility] Last Admin: 07/14/17 10:58 Dose: 40 mg Sodium Chloride (Sodium Chloride Flush Syringe 10 Ml) 10 ml IV BID [facility] Last Admin: 07/14/17 09:02 Dose: 10 ml Sodium Chloride (Sodium Chloride Flush Syringe 10 Ml) 10 ml IV PRN PRN PRN Reason: LINE FLUSH Tiotropium [place] (Spiriva) 1 puff IH DAILY [facility] Last Admin: 07/14/17 09:10 Dose: 1 puff Objective Vital Signs - 12hr 07/14/17 07/14/17 07/14/17 07:29 07:49 08:09 Temperature 97.5 F L Pulse Rate Pulse Rate [ 65 69 Anterior Bilateral Throughout] Pulse Rate [ Radial] Respiratory 27 H Rate Respiratory 18 18 Rate [Anterior Bilateral Throughout] Blood Pressure 132/64 O2 Sat by Pulse Oximetry 07/14/17 07/14/17 07/14/17 10:00 13:49 14:47 Temperature 98.2 F Pulse Rate 87 Pulse Rate [ 89 Anterior Bilateral Throughout] Pulse Rate [ 78 Radial] Respiratory 16 20 Rate Respiratory 18 Rate [Anterior Bilateral Throughout] Blood Pressure 132/69 O2 Sat by Pulse 97 93 Oximetry Constitutional: no acute distress, alert Eyes: non-icteric ENT: oropharynx moist Neck: supple, no lymphadenopathy Effort: normal Ascultation: Bilateral: diminished breath sounds, wheezes (better) Cardiovascular: regular rate and rhythm (no mrg) Gastrointestinal: normoactive bowel sounds, soft, non-tender, non-distended Integumentary: normal Extremities: no cyanosis, no edema, pink and warm Neurologic: normal mental status, non-focal exam, pupils equal and round, CN II- XII normal Psychiatric: mood appropriate, affect normal CBC and BMP: 07/12/17 05:48 07/12/17 05:48 ABG, PT/INR, D-dimer: ABG POC ABG pH 7.425 (7.35-7.45) 07/12/17 17:48 POC ABG pCO2 51.1 (35-45) H 07/12/17 17:48 POC ABG pO2 69 (80-105) L 07/12/17 17:48 POC ABG HCO3 33.5 07/12/17 17:48 POC ABG Total CO2 35 07/12/17 17:48 POC ABG O2 Sat 94 07/12/17 17:48 PT/INR, D-dimer PT 11.4 Sec. (12.2-14.9) L 07/08/17 21:29 INR 0.80 (0.87-1.13) L 07/08/17 21:29 Abnormal lab findings: Abnormal Labs 07/08/17 07/08/17 07/08/17 21:29 21:29 21:29 WBC RBC 3.63 L RDW 16.5 H Plt Count Lymph % (Auto) 7.6 L Lymph # 0.6 L Seg Neutrophils % 88.6 H PT 11.4 L INR 0.80 L POC ABG pCO2 POC ABG pO2 Chloride 96.9 L Carbon Dioxide 33 H BUN 21 H Creatinine Glucose 203 H CK-MB (CK-2) CK-MB (CK-2) Rel Index 07/09/17 07/09/17 07/10/17 06:13 06:13 12:46 WBC RBC 3.57 L RDW 16.2 H Plt Count Lymph % (Auto) 9.2 L Lymph # 0.7 L Seg Neutrophils % 88.9 H PT INR POC ABG pCO2 POC ABG pO2 Chloride Carbon Dioxide 31 H BUN Creatinine 0.6 L Glucose 146 H CK-MB (CK-2) 4.4 H CK-MB (CK-2) Rel Index 10.7 H 07/11/17 07/12/17 07/12/17 04:56 05:48 05:48 WBC 11.8 H RBC RDW 16.5 H Plt Count 463 H Lymph % (Auto) Lymph # Seg Neutrophils % PT INR POC ABG pCO2 POC ABG pO2 Chloride Carbon Dioxide BUN 27 H Creatinine 0.6 L Glucose 126 H CK-MB (CK-2) CK-MB (CK-2) Rel Index 10.2 H 07/12/17 17:48 WBC RBC RDW Plt Count Lymph % (Auto) Lymph # Seg Neutrophils % PT INR POC ABG pCO2 51.1 H POC ABG pO2 69 L Chloride Carbon Dioxide BUN Creatinine Glucose CK-MB (CK-2) CK-MB (CK-2) Rel Index Chest x-ray: report reviewed, image reviewed CT scan - chest: report reviewed, image reviewed
--- NOTE | 2017-07-14 15:41 | Progress Note ---
Assessment and Plan Assessment and plan: 67 year-old woman with a history of COPD on home oxygen came to the emergency room today she developed shortness of breath, cough productive of white phlegm. 3 weeks ago she was started on prednisone pack, with Z-Manuel, her symptoms improved mildly and was given another course of antibiotics and steroids stapled which she has just completed. Shortness of breath got worse today so she came to the emergency room for further evaluation Acute on chronic respiratory failure with hypoxia due to COPD exacerbation. * Transition to PO and At d/c recommend prednisone 40mg x 3 days, 30mg x 3 days , 20mg x 3 days, 10mg x 3 days * Continue oxygen * Stress test" patient indicated at this time chest tightness likely secondary to severe COPD. COPD exacerbation. * As noted above. Continue current treatment included oxygen, home O2 evaluation prior to discharge * Agree with addition of Rocephin Will discharge on Omnicep * Per Pulmonary "CT chest; report is incorrect as there are 2 distinct nodules in the SUMIT; the more superior nodule is subcentimeter and has been present on plain film in the office dating back to 2015; there is a larger pleural-based 1.2 cm nodule that may be amenable to CT guided biopsy but, given risk for PTX, I would not consider this until her COPD exacerbation has completely resolved and she is back to usual compensated baseline; likely will proceed with PET as an outpatient first to obtain further data; d/w patient who agrees; she will f/ u with me PHIL after discharge" Chest tightness * cardiac enzymes neg, EKG no changes * Low clinical indication and house at this time for stress test but this can be done outpatient Acute bronchitis * Rocephin added. Left lower lobe pulmonary nodule * Stable per her primary homebirth midwife DVT prophylaxis with Lovenox Full code status Plan of care discussed with the patient also with cardiology team in detail they agree with treatment plan we'll continue current management. Aniticipate discharge in AM History Interval history: Patient is seen today for: COPD exacerbation Seen and examined at bedside; 24hour events reviewed; nursing staff ; no adverse overnight events reported to me; she continues to improve although with some shortness of breath still cough is also improving. She denies any diarrhea No fever noted blood pressure controlled Hospitalist Physical - Physical exam Narrative exam: VITAL SIGNS: Reviewed. GENERAL: The patient appeared well nourished and normally developed. Vital signs as documented. HEAD: No signs of head trauma. EYES: Pupils are equal. Extraocular motions intact. EARS: Hearing grossly intact. MOUTH: Oropharynx is normal. NECK: No adenopathy, no JVD. CHEST: Chest with expiratory wheeze. CARDIAC: Regular rate and rhythm. S1 and S2, without murmurs, gallops, or rubs. VASCULAR: No Edema. Peripheral pulses normal and equal in all extremities. ABDOMEN: Soft, without detectable tenderness. No sign of distention. No rebound or guarding, and no masses palpated. Bowel Sounds normal. MUSCULOSKELETAL: Good range of motion of all major joints. Extremities without clubbing, cyanosis or edema. NEUROLOGIC EXAM: Alert and oriented x 3. No focal sensory or strength deficits. Speech normal. Follows commands. PSYCHIATRIC: Mood anxious. SKIN: No rash or lesions. - Constitutional Vitals: Temp Pulse Resp BP Pulse Ox 98.2 F 87 20 132/69 93 07/14/17 14:47 07/14/17 14:47 07/14/17 14:47 07/14/17 14:47 07/14/17 14:47 Results - Labs CBC & Chem 7: 07/12/17 05:48 07/12/17 05:48 Labs: Laboratory Last Values WBC 11.8 K/mm3 (4.5-11.0) H 07/12/17 05:48 RBC 4.00 M/mm3 (3.65-5.03) 07/12/17 05:48 Hgb 11.7 gm/dl (10.1-14.3) 07/12/17 05:48 Hct 34.2 % (30.3-42.9) 07/12/17 05:48 MCV 85 fl (79-97) 07/12/17 05:48 MCH 29 pg (28-32) 07/12/17 05:48 MCHC 34 % (30-34) 07/12/17 05:48 RDW 16.5 % (13.2-15.2) H 07/12/17 05:48 Plt Count 463 K/mm3 (140-440) H 07/12/17 05:48 Lymph % (Auto) 9.2 % (13.4-35.0) L 07/09/17 06:13 [place] % (Auto) 1.9 % (0.0-7.3) 07/09/17 06:13 Eos % (Auto) 0.0 % (0.0-4.3) 07/09/17 06:13 Baso % (Auto) 0.0 % (0.0-1.8) 07/09/17 06:13 Lymph # 0.7 K/mm3 (1.2-5.4) L 07/09/17 06:13 [place] # 0.1 K/mm3 (0.0-0.8) 07/09/17 06:13 Eos # 0.0 K/mm3 (0.0-0.4) 07/09/17 06:13 Baso # 0.0 K/mm3 (0.0-0.1) 07/09/17 06:13 Seg Neutrophils % 88.9 % (40.0-70.0) H 07/09/17 06:13 Seg Neutrophils # 6.3 K/mm3 (1.8-7.7) 07/09/17 06:13 PT 11.4 Sec. (12.2-14.9) L 07/08/17 21:29 INR 0.80 (0.87-1.13) L 07/08/17 21:29 POC ABG pH 7.425 (7.35-7.45) 07/12/17 17:48 POC ABG pCO2 51.1 (35-45) H 07/12/17 17:48 POC ABG pO2 69 (80-105) L 07/12/17 17:48 POC ABG HCO3 33.5 07/12/17 17:48 POC ABG Total CO2 35 07/12/17 17:48 POC ABG O2 Sat 94 07/12/17 17:48 POC ABG Base Excess 9 07/12/17 17:48 FiO2 28 % 07/12/17 17:48 Sodium 141 mmol/L (137-145) 07/12/17 05:48 Potassium 4.5 mmol/L (3.6-5.0) 07/12/17 05:48 Chloride 100.6 mmol/L (98-107) 07/12/17 05:48 Carbon Dioxide 29 mmol/L (22-30) 07/12/17 05:48 Anion Gap 16 mmol/L 07/12/17 05:48 BUN 27 mg/dL (7-17) H 07/12/17 05:48 Creatinine 0.6 mg/dL (0.7-1.2) L 07/12/17 05:48 Estimated GFR > 60 ml/min 07/12/17 05:48 BUN/Creatinine Ratio 45 % 07/12/17 05:48 Glucose 126 mg/dL (65-100) H 07/12/17 05:48 Calcium 8.4 mg/dL (8.4-10.2) 07/12/17 05:48 Total Bilirubin 0.20 mg/dL (0.1-1.2) 07/08/17 21:29 AST 15 units/L (5-40) 07/08/17 21:29 ALT 12 units/L (7-56) 07/08/17 21:29 Alkaline Phosphatase 64 units/L (35-129) 07/08/17 21:29 Total Creatine Kinase 39 units/L (30-135) 07/11/17 04:56 CK-MB (CK-2) 4.0 ng/mL (0.0-4.0) 07/11/17 04:56 CK-MB (CK-2) Rel Index 10.2 (0-4) H 07/11/17 04:56 Troponin T < 0.010 ng/mL (0.00-0.029) 07/11/17 04:56 Total Protein 6.7 g/dL (6.3-8.2) 07/08/17 21:29 Albumin 4.1 g/dL (3.9-5) 07/08/17 21:29 Albumin/Globulin Ratio 1.6 % 07/08/17 21:29 Urine Color Yellow (Yellow) 07/08/17 Unknown Urine Turbidity Clear (Clear) 07/08/17 Unknown Urine pH 5.0 (5.0-7.0) 07/08/17 Unknown Ur Specific [place] 1.019 (1.003-1.030) 07/08/17 Unknown Urine Protein <15 mg/dl mg/dL (Negative) 07/08/17 Unknown Urine Glucose (UA) Neg mg/dL (Negative) 07/08/17 Unknown Urine Ketones Tr mg/dL (Negative) 07/08/17 Unknown Urine Blood Neg (Negative) 07/08/17 Unknown Urine Nitrite Neg (Negative) 07/08/17 Unknown Urine Bilirubin Neg (Negative) 07/08/17 Unknown Urine Urobilinogen < 2.0 mg/dL (<2.0) 07/08/17 Unknown Ur Leukocyte Esterase Neg (Negative) 07/08/17 Unknown Urine WBC (Auto) 1.0 /HPF (0.0-6.0) 07/08/17 Unknown Urine RBC (Auto) 1.0 /HPF (0.0-6.0) 07/08/17 Unknown U Epithel Cells (Auto) < 1.0 /HPF (0-13.0) 07/08/17 Unknown Urine Mucus Few /HPF 07/08/17 Unknown - Imaging and Cardiology CT scan - chest: image reviewed (CT shows copd and also pulmonary nodule)
[2017-07-15] MEDS: DUONEB *Not for PRN Use IH SCH ×2 (02:54→11:47)
[2017-07-15 07:14] VITALS: BP 143/62
[2017-07-15] MEDS: BROVANA NEBU IH SCH (07:31)
[2017-07-15] MEDS: SPIRIVA IH SCH ×2 (07:31→11:47)
[2017-07-15] MEDS: PULMICORT IH SCH (07:31)
--- NOTE | 2017-07-15 09:46 | Discharge Summary ---
Providers - Providers Date of Admission: 07/08/17 23:45 Attending physician: IMANI MARTIN MD 07/08/17 23:13 Consult to Physician [CONS] Urgent Comment: Called answering service and spoke to Lety/David Consulting Provider: ANNA HAMM Physician Instructions: Reason For Exam: copd exacerbation Primary care physician: FLIGHT COMMUNICATIONS OFFICER Hospitalization Reason for admission: acute respiratory failure Condition: Stable Hospital course: 67 year-old woman with a history of COPD on home oxygen came to the emergency room today she developed shortness of breath, cough productive of white phlegm. 3 weeks ago she was started on prednisone pack, with Z-Manuel, her symptoms improved mildly and was given another course of antibiotics and steroids stapled which she has just completed. Shortness of breath got worse today so she came to the emergency room for further evaluation patient on admission was started on IV steroids and subsequently changed to taper. A CT scan was obtained at the request of the landscaping supervisor with review by the landscaping supervisor noted Per Pulmonary "CT chest; report is incorrect as there are 2 distinct nodules in the SUMIT; the more superior nodule is subcentimeter and has been present on plain film in the office dating back to 2016; there is a larger pleural-based 1.2 cm nodule that may be amenable to CT guided biopsy but, given risk for PTX, I would not consider this until her COPD exacerbation has completely resolved and she is back to usual compensated baseline; likely will proceed with PET as an outpatient first to obtain further data; d/w patient who agrees; she will f/u with [facility] after discharge" Patient prior to admission for failed outpatient therapy as noted above. She' ll subsequently switched to tapering dose of prednisone stable for discharge. She had a stress test which was terminated due to shortness of breath and recommended following up with cardiology for outpatient stress evaluation cost report of chest pain and I feel this chest pain is related to her severe COPD exacerbation. Discharge diagnosis Acute on chronic respiratory failure with hypoxia due to COPD exacerbation. COPD with acute exacerbation. Atypical Chest pain secondary to COPD Acute bronchitis Left lower lobe pulmonary nodule Disposition: [id number] HOME UNDER HOME [facility] Time spent for discharge: 35 mins Core Measure Documentation - Palliative Care Palliative Care/ Comfort Measures: Not Applicable - Core Measures Any of the following diagnoses?: none - VTE Discharge Requirements Deep Vein Thrombosis/Pulmonary Embolism Present on Admission: No Exam - Physical Exam Narrative exam: VITAL SIGNS: Reviewed. GENERAL: The patient appeared well nourished and normally developed. Vital signs as documented. HEAD: No signs of head trauma. EYES: Pupils are equal. Extraocular motions intact. EARS: Hearing grossly intact. MOUTH: Oropharynx is normal. NECK: No adenopathy, no JVD. CHEST: Chest with expiratory wheeze. CARDIAC: Regular rate and rhythm. S1 and S2, without murmurs, gallops, or rubs. VASCULAR: No Edema. Peripheral pulses normal and equal in all extremities. ABDOMEN: Soft, without detectable tenderness. No sign of distention. No rebound or guarding, and no masses palpated. Bowel Sounds normal. MUSCULOSKELETAL: Good range of motion of all major joints. Extremities without clubbing, cyanosis or edema. NEUROLOGIC EXAM: Alert and oriented x 3. No focal sensory or strength deficits. Speech normal. Follows commands. PSYCHIATRIC: Mood anxious. SKIN: No rash or lesions. - Constitutional Vitals: Temp Pulse Resp BP Pulse Ox 98.2 F 73 16 143/62 98 07/15/17 07:12 07/15/17 07:12 07/15/17 07:12 07/15/17 07:12 07/15/17 07:12 Plan Activity: advance as tolerated, fall precautions Diet: low carbohydrate Special Instructions: record daily BP diary, home oxygen via (nasal cannula @ 2 liters per minute) Additional Instructions: PET scan to evaluate pulmonary nodules outpatient to be arranged by Dr Hamm Follow up with: PRIMARY MD CARTER [Primary Care Provider] - 3-5 Days BANG BILLY MD [Staff Physician] - 7 Days ANNA HAMM MD [Staff Physician] - 7 Days Prescriptions: Cefdinir 300 mg PO BID #10 capsule predniSONE [Deltasone] 10 mg PO .TAPER #32 tab
[2017-07-15] MEDS: cefTRIAXone 1 GM in NACL 0.9% 20 ML IV SCH (10:07)
[2017-07-15] MEDS: SODIUM CHLORIDE FLUSH SYRINGE 10 ML IV SCH (10:07)
[2017-07-15] MEDS: SINGULAIR PO SCH (10:08)
[2017-07-15] MEDS: LOVENOX SUB-Q SCH (10:08)
[2017-07-15] MEDS: PROTONIX PO SCH (10:08)
[2017-07-15] MEDS: DELTASONE PO SCH (10:08)
[2017-07-15] MEDS: MUCINEX ER PO SCH (10:08)
[2017-07-15] MEDS: VITAMIN D3 PO SCH (10:09)
--- NOTE | 2017-07-15 11:11 | Progress Note ---
Assessment and Plan No objection to discharge today. Follow up with Yue as an outpatient. Steroid taper in Yue note from yesterday is appropriate. Subjective Date of service: 07/15/17 Principal diagnosis: COPD exac. Interval history: Discharge in place. STable Objective Vital Signs - 12hr 07/15/17 07/15/17 02:47 07:12 Temperature 97.9 F 98.2 F Pulse Rate 76 73 Respiratory 18 16 Rate Blood Pressure 158/66 Blood Pressure 143/62 [Right] O2 Sat by Pulse 97 98 Oximetry Constitutional: no acute distress, alert Eyes: non-icteric ENT: oropharynx moist Neck: supple, no lymphadenopathy Effort: normal Ascultation: Bilateral: diminished breath sounds, wheezes (better) Cardiovascular: regular rate and rhythm (no mrg) Gastrointestinal: normoactive bowel sounds, soft, non-tender, non-distended Integumentary: normal Extremities: no cyanosis, no edema, pink and warm Neurologic: normal mental status, non-focal exam, pupils equal and round, CN II- XII normal Psychiatric: mood appropriate, affect normal CBC and BMP: 07/12/17 05:48 07/12/17 05:48 ABG, PT/INR, D-dimer: ABG POC ABG pH 7.425 (7.35-7.45) 07/12/17 17:48 POC ABG pCO2 51.1 (35-45) H 07/12/17 17:48 POC ABG pO2 69 (80-105) L 07/12/17 17:48 POC ABG HCO3 33.5 07/12/17 17:48 POC ABG Total CO2 35 07/12/17 17:48 POC ABG O2 Sat 94 07/12/17 17:48 PT/INR, D-dimer PT 11.4 Sec. (12.2-14.9) L 07/08/17 21:29 INR 0.80 (0.87-1.13) L 07/08/17 21:29 Abnormal lab findings: Abnormal Labs 07/08/17 07/08/17 07/08/17 21:29 21:29 21:29 WBC RBC 3.63 L RDW 16.5 H Plt Count Lymph % (Auto) 7.6 L Lymph # 0.6 L Seg Neutrophils % 88.6 H PT 11.4 L INR 0.80 L POC ABG pCO2 POC ABG pO2 Chloride 96.9 L Carbon Dioxide 33 H BUN 21 H Creatinine Glucose 203 H CK-MB (CK-2) CK-MB (CK-2) Rel Index 07/09/17 07/09/17 07/10/17 06:13 06:13 12:46 WBC RBC 3.57 L RDW 16.2 H Plt Count Lymph % (Auto) 9.2 L Lymph # 0.7 L Seg Neutrophils % 88.9 H PT INR POC ABG pCO2 POC ABG pO2 Chloride Carbon Dioxide 31 H BUN Creatinine 0.6 L Glucose 146 H CK-MB (CK-2) 4.4 H CK-MB (CK-2) Rel Index 10.7 H 07/11/17 07/12/17 07/12/17 04:56 05:48 05:48 WBC 11.8 H RBC RDW 16.5 H Plt Count 463 H Lymph % (Auto) Lymph # Seg Neutrophils % PT INR POC ABG pCO2 POC ABG pO2 Chloride Carbon Dioxide BUN 27 H Creatinine 0.6 L Glucose 126 H CK-MB (CK-2) CK-MB (CK-2) Rel Index 10.2 H 07/12/17 17:48 WBC RBC RDW Plt Count Lymph % (Auto) Lymph # Seg Neutrophils % PT INR POC ABG pCO2 51.1 H POC ABG pO2 69 L Chloride Carbon Dioxide BUN Creatinine Glucose CK-MB (CK-2) CK-MB (CK-2) Rel Index
== END 2017-07-15 12:35 | disposition home health service (06) | DRG 189 ==
LOC: ED 20:54 → 2B-ACE 23:45
PROVIDERS: ADMIT Internal Medicine; ATTEND Internal Medicine
PROC: 4A033R1 Measurement of Arterial Saturation, Peripheral, Percutaneous Approach (ICD-10-PCS; principal; 2017-07-12)
DX: J96.21 Acute and chronic respiratory failure with hypoxia (principal); J44.1 Chronic obstructive pulmonary disease with (acute) exacerbation; R65.10 Systemic inflammatory response syndrome (SIRS) of non-infectious origin without acute organ dysfunction; J44.0 Chronic obstructive pulmonary disease with (acute) lower respiratory infection; R91.1 Solitary pulmonary nodule; M81.0 Age-related osteoporosis without current pathological fracture; J20.9 Acute bronchitis, unspecified; Z99.81 Dependence on supplemental oxygen; Z79.899 Other long term (current) drug therapy; Z88.5 Allergy status to narcotic agent; Z90.710 Acquired absence of both cervix and uterus; Z82.49 Family history of ischemic heart disease and other diseases of the circulatory system
CPT/HCPCS: 36415; 36600; 71046; 71250; 80048; 80053; 81001; 82550; 82553; 82803; 84484; 85025; 85027; 85610; 93005; 93010; 94640; 94644; 94760; 96365; 96375; J0696; J1650; J2785; J2920; J2930; J3475; J7512

== ENCOUNTER 2017-09-15 08:39 | Outpatient (CLI) | payer MEDICARE ==
--- NOTE | 2017-09-15 13:17 | PET Report ---
PET/CT:09/15/17 08:39:00 CLINICAL: Solitary pulmonary nodule. RADIOPHARMACEUTICAL: 14.16mCi F18-FDG. COMPARISON: CT chest 07/14/17 TECHNIQUE- Following intravenous injection of F-18 FDG and an approximately 60 minute uptake period, CT and PET images from the mid skull to the upper thighs were acquired with the patient in the fasted state. No contrast was administered. The CT protocol used for this PET CT study is designed for attenuation correction and anatomic localization of PET abnormalities. This landscape artist CT is not desired to produce and cannot replace, bxtuy-le-ywh-art diagnostic CT scans with specific imaging protocols for different body parts and indications. Plasma glucose at the time of this test: 107g/dl. The standardized uptake values (SUV) are normalized to patient body weight and indicate the highest activity concentration (SUV max) in a given disease site. FINDINGS: Brain--Physiologic FDG uptake in the visualized regions of the brain. Neck--Physiologic FDG uptake in mucosal structures and musculature. Chest--Physiologic FDG uptake in mediastinal blood pool and myocardium. Physiologic uptake in chest musculature. Lungs--An irregular FDG avid peripheral left upper lobe anterior lung nodule measures 1.2 x 1.6 x 1.2 cm in SUV 7.5. The nodule is contiguous to the pleura. No other pulmonary nodule or mass. Pleura/pericardium--No abnormal uptake. Thoracic nodes--No abnormal uptake. No lymphadenopathy. Hepatobiliary--No abnormal uptake. Liver background SUV mean, as a reference for comparing FDG studies, is 3.0 . No liver mass. Spleen--No abnormal uptake. Pancreas--No abnormal uptake. Adrenal Glands--No abnormal uptake in a mass. Kidneys/Ureters/Bladder--No abnormal uptake. Abdominopelvic Nodes--No abnormal uptake. Bowel/Peritoneum/Mesentery--No abnormal uptake. Pelvic organs--No abnormal uptake. Bones/Soft Tissues--No abnormal uptake and no suspicious bone lesions. A non-FDG avid sclerotic lesion of the left anterior third rib is probably an old healed fracture. It measures 1.5 x 0.8 cm image 76, series 1. Other findings: Status post hysterectomy. IMPRESSION- 1. A 1.6 cm FDG avid left upper lobe lung nodule is suspicious for a bronchogenic carcinoma. 2. No evidence of metastasis. 3. An old healed fracture of the left anterior third rib.
== END 2017-09-15 08:40 | disposition home or self-care (01) ==
LOC: PET 08:39
PROVIDERS: ATTEND Internal Medicine Critical Care Medicine
DX: R91.1 Solitary pulmonary nodule (principal); I10 Essential (primary) hypertension; J44.1 Chronic obstructive pulmonary disease with (acute) exacerbation; E78.00 Pure hypercholesterolemia, unspecified; F32.9 Major depressive disorder, single episode, unspecified; F41.9 Anxiety disorder, unspecified; Z90.710 Acquired absence of both cervix and uterus; Z88.8 Allergy status to other drugs, medicaments and biological substances
CPT/HCPCS: 78815; 82962; A9552

== ENCOUNTER 2017-10-03 09:14 | Day surgery (SDC) | payer MEDICARE | END 2017-10-03 09:15 | disposition home or self-care (01) | LOC: CATHLABREC 09:14 | PROVIDERS: ATTEND Internal Medicine Critical Care Medicine | DX: R94.31 Abnormal electrocardiogram [ECG] [EKG] (principal); I25.10 Atherosclerotic heart disease of native coronary artery without angina pectoris; I10 Essential (primary) hypertension; E11.36 Type 2 diabetes mellitus with diabetic cataract; E78.00 Pure hypercholesterolemia, unspecified; J43.9 Emphysema, unspecified; F32.9 Major depressive disorder, single episode, unspecified; M81.0 Age-related osteoporosis without current pathological fracture; Z79.82 Long term (current) use of aspirin; Z79.899 Other long term (current) drug therapy; Z79.01 Long term (current) use of anticoagulants; Z88.5 Allergy status to narcotic agent; Z98.51 Tubal ligation status; Z90.710 Acquired absence of both cervix and uterus; Z98.49 Cataract extraction status, unspecified eye; Z86.73 Personal history of transient ischemic attack (TIA), and cerebral infarction without residual deficits; Z98.890 Other specified postprocedural states; Z83.3 Family history of diabetes mellitus; Z82.49 Family history of ischemic heart disease and other diseases of the circulatory system ==

== ENCOUNTER 2017-11-11 07:08 | Day surgery (SDC) | payer MEDICARE ==
[2017-11-11] MEDS ORDERED: ECOTRIN PO NR (09:00)
[2017-11-11] MEDS: NACL 0.9% 500 ML 500 ML IV SCH ×2 (09:04→09:30)
[2017-11-11] MEDS ORDERED: SUBLIMAZE ONE (09:11)
[2017-11-11] MEDS ORDERED: VERSED ONE (09:11)
[2017-11-11] MEDS ORDERED: XYLOCAINE 2% INFILTRATI ONE (09:12)
[2017-11-11] MEDS ORDERED: HEPARIN 10,000 UNITS/10 ML ONE (09:12)
[2017-11-11] MEDS ORDERED: CALAN ONE (09:12)
[2017-11-11] MEDS ORDERED: HEPARIN/NS 5000 UNIT/500ML(CATH LAB) 1,000 ML IR ONE (09:12)
--- NOTE | 2017-11-11 10:49 | Cardiac Catherization Report ---
CLINICAL INFORMATION: The patient is a 67-year-old white female with severe underlying chronic obstructive lung disease with pulmonary nodule noted and recent biopsy showed it to be cancerous, needs a radiation therapy. The patient has history of congestive heart failure in 2010, but diagnosis is not clear. Echocardiogram was performed recently, which was unremarkable. IV Lexiscan nuclear imaging performed on 10/11/2017 showed abnormal myocardial perfusion imaging with moderate sized predominantly fixed inferoapical perfusion defect, question of artifact versus prior FL was raised. No significant reversible ischemia noted. Considering patient is having significant shortness of breath, it was decided to proceed with evaluating for any underlying coronary disease contributing to her shortness of breath. Hence, the patient is scheduled for cardiac catheterization for definitive diagnosis and treatment. The patient is aware of the procedure, potential complications, and alternatives of therapy available. The patient was brought to the catheterization laboratory in a fasting condition. The patient was evaluated for moderate sedation. The patient was felt to be appropriate candidate; however, has significant COPD. Hence, it was felt to closely monitor her. The patient was sedated with IV Versed around at 9:33 a.m. and the patient was monitored very closely for O2 saturations and hemodynamic monitoring. The patient was sedated up to 9:54 a.m. and close monitoring did not reveal any side effects. At the end of the procedure, the patient is able to communicate well and breathing normally. No focal deficits were noted. DESCRIPTION OF PROCEDURE: The patient was brought to the catheterization laboratory in a fasting condition. The right wrist area and forearm thoroughly cleansed with Betadine solution. Sterile drapes were applied. Local anesthesia was given in the right wrist area. Right radial artery puncture was made using 21-gauge arterial puncture needle. Subsequently, 5-Argentine sheath was introduced. A 5-Argentine multipurpose catheter was used to obtain the angiograms of the left coronary artery in multiple views followed by angiograms of the right coronary artery in multiple views and left ventriculogram done in [place] projection using hand injection at the end of the procedure, catheter and sheath were removed. Good hemostasis was achieved with pressure bandage. No untoward complications were noted. As mentioned above, the patient tolerated IV sedation well. Following findings were noted. HEMODYNAMICS: 1. Opening aortic pressure 150/72. Left ventricular pressure 148/29. No gradient across the aortic valve with estimated ejection fraction more than 65%. 2. Left ventriculogram done in [place] projection using hand injection showed normal small size left ventricle with excellent contractility. Ejection fraction was found to be excellent, more than 65%. Mitral regurgitation was not evaluated because of limited amount of dye injected. 3. Left coronary artery arises normally from left coronary system. The left main is very short, immediately dividing into LAD and circumflex branches. LAD which curves around the apex and its branches show only very mild smooth irregularities. Circumflex artery showed eccentric 40% smooth lesion in the mid part of the origin of the left atrial branch. This lesion was noted only in certain views. Rest of the circumflex artery and its marginal branches show only minimal irregularities. 4. Right coronary artery dominant vessel arises normally from right coronary cusp. This is dominant vessel and shows minimal smooth irregularities. It is to be noted very minimal calcifications were noted in the coronary tree area. FINAL IMPRESSION: Mostly mild disease with moderate lesion in the mid circumflex, which was felt to be nonobstructive, otherwise, excellent LV function noted. At this time, the patient has mild to moderate coronary artery disease. It was felt that these lesions are not obstructive and probably not contributing to her symptoms; however, she needs continued risk factor modification. The patient has excellent LV function. At this time, it was felt that the patient can undergo her treatment for lung cancer. Cardiac alvarez, she appears to be stable. Findings were explained to the patient and her son. The patient was observed in outpatient area for next few hours and discharged home. No untoward complications were noted. [facility]# [id number] MARK/ELIZABETH
[2017-11-11 12:14] VITALS: BP 131/65
--- NOTE | 2017-11-14 16:30 | Short Stay Summary ---
Short Stay Documentation Date of service: 11/11/17 - History H&P: obtained from office - Allergies and Medications Current Medications: Allergies codeine Allergy (Verified 12/11/13 13:20) Nausea Home Medications Medication Instructions Recorded Confirmed Last Taken Type Albuterol Sulfate [Albuterol 0.63% 3 ml INHALATION TID 12/11/13 11/11/17 History NEBS] 2 Montelukast (Nf) [Singulair] 10 mg PO DAILY 12/11/13 11/11/17 11/10/17 History 10mg Tiotropium [Spiriva] 1 cap INHALATION DAILY 12/11/13 11/11/17 11/10/17 History 1 clonazePAM 1 tab PO Q8HR PRN 12/11/13 11/11/17 11/10/17 History 1 ALBUTEROL Inhaler (OR & NICU) 2 puff IH QID PRN 02/02/16 11/11/17 11/10/17 History [ProAir HFA Inhaler] 2 Azelastine 0.1% (Nf) [Astelin (Nf)] 1 spray INNOSTRIL QAM 02/02/16 11/11/17 History 1 Cholecalciferol (Vitamin D3) 2,000 unit PO QDAY 02/02/16 11/11/17 11/10/17 History [Vitamin D3 2,000 unit] 2000units Dagmar-3S/Dha/Epa/Fish Oil/D3 1 each PO DAILY 02/02/16 11/11/17 11/10/17 History [Dagmar-3 + D Softgel] 1 Omeprazole 40 mg PO DAILY 02/02/16 11/11/17 11/10/17 History 40mg guaiFENesin [Mucinex] 600 mg PO QAM 02/02/16 11/11/17 11/10/17 History 600mg Budesoni/Formotero 160-4.5(Nf) 2 puff IH BID 30 Days inha 08/11/16 11/11/17 Rx [Symbicort 160-4.5 (Nf)] 2 Fluticasone [Flonase] 100 mcg NS QDAY PRN #1 bottle 08/11/16 11/11/17 11/10/17 Rx 2 Cefdinir 300 mg PO BID #10 capsule 07/15/17 11/11/17 11/10/17 Rx 300mg Budesonide/Formoterol Fumarate 2 puff [id number] PRN 11/11/17 11/11/1711/10 History [Symbicort 160-4.5 Mcg Inhaler] 2 Pregabalin [Lyrica] 75 mcg PO DAILY 11/11/17 11/11/17 11/10/17 History 75mcg Roflumilast (Nf) [Daliresp (Nf)] 500 mcg PO DAILY 11/11/17 11/11/17 11/10/17 History 500mcg SUMAtriptan succinate [SUMAtriptan 50 mg PO DAILY PRN 11/11/17 11/11/17 History Succinate] 50mg Simvastatin [Zocor TAB] 10 mg PO DAILY 11/11/17 11/11/17 11/10/17 History 10mg Suvorexant [Belsomra] 10 mg PO DAILY 11/11/17 11/11/17 11/10/17 History 10mg - Brief post op/procedure progress note Date of procedure: 11/11/17 Pre-op diagnosis: SOB Post-op diagnosis: other (nonobstructive CAD) Procedure: C - see dictated cath report Anesthesia: local Estimated blood loss: none Condition: stable - Disposition Condition at discharge: Fair Disposition: DC-01 TO HOME OR SELFCARE - Discharge Diagnoses (1) Nonobstructive atherosclerosis of coronary artery Status: Chronic (2) COPD (chronic obstructive pulmonary disease) Status: Chronic (3) Lung cancer Status: Chronic Short Stay Discharge Plan Activity: advance as tolerated Diet: low fat, low cholesterol Wound: open to air, keep clean and dry, per your surgeon's advice Follow up with: MEGHA VAZQUEZ [Primary Care Provider] - 7 Days Forms: CardCath PCI D/C Instructions
== END 2017-11-11 15:00 | disposition home or self-care (01) ==
LOC: CATHLABREC 07:08
PROVIDERS: ATTEND Internal Medicine
DX: I25.10 Atherosclerotic heart disease of native coronary artery without angina pectoris (principal); I11.0 Hypertensive heart disease with heart failure; I50.9 Heart failure, unspecified; C34.90 Malignant neoplasm of unspecified part of unspecified bronchus or lung; E78.00 Pure hypercholesterolemia, unspecified; J43.9 Emphysema, unspecified; F41.9 Anxiety disorder, unspecified; F32.9 Major depressive disorder, single episode, unspecified; Z98.51 Tubal ligation status; Z90.710 Acquired absence of both cervix and uterus; Z98.42 Cataract extraction status, left eye; Z98.41 Cataract extraction status, right eye; Z83.71 Family history of colonic polyps; Z98.890 Other specified postprocedural states; Z90.49 Acquired absence of other specified parts of digestive tract; Z82.61 Family history of arthritis; Z83.3 Family history of diabetes mellitus; Z82.5 Family history of asthma and other chronic lower respiratory diseases; Z81.1 Family history of alcohol abuse and dependence; Z84.1 Family history of disorders of kidney and ureter; Z82.49 Family history of ischemic heart disease and other diseases of the circulatory system; Z91.81 History of falling; Z88.5 Allergy status to narcotic agent; Z79.899 Other long term (current) drug therapy; Z87.891 Personal history of nicotine dependence
CPT/HCPCS: 93005; 93010; 93458; 99156; 99157; C1769; C1894; J1644; J2250; J3010; J7040; Q9967

== ENCOUNTER 2018-05-04 10:58 | Outpatient (CLI) | payer MEDICARE ==
[2018-05-04 12:04] LABS: INR 0.84 (0.87-1.13)
[2018-05-04 12:05] LABS: Partial Thromboplastin Time 28.1 Sec. (24.2-36.6)
== END 2018-05-04 10:59 | disposition home or self-care (01) ==
LOC: LAB 10:58
PROVIDERS: ATTEND Internal Medicine
DX: R23.3 Spontaneous ecchymoses (principal); E78.00 Pure hypercholesterolemia, unspecified; J43.9 Emphysema, unspecified; M81.0 Age-related osteoporosis without current pathological fracture; I10 Essential (primary) hypertension; Z87.891 Personal history of nicotine dependence
CPT/HCPCS: 36415; 85610; 85730

== ENCOUNTER 2018-07-04 09:02 | Outpatient (CLI) | payer MEDICARE ==
[2018-07-04 11:15] LABS: Chol/HDL Ratio 2.66 %
[2018-07-07 15:02] LABS: Vitamin D, 25-OH, D2 11 ng/mL
== END 2018-07-04 09:03 | disposition home or self-care (01) ==
LOC: LAB 09:02
PROVIDERS: ATTEND Internal Medicine
DX: E78.5 Hyperlipidemia, unspecified (principal); E55.9 Vitamin D deficiency, unspecified; E78.00 Pure hypercholesterolemia, unspecified; J43.9 Emphysema, unspecified; Z90.89 Acquired absence of other organs; Z97.10 Presence of artificial limb (complete) (partial), unspecified
CPT/HCPCS: 36415; 80061; 82306

== ENCOUNTER 2018-09-29 09:38 | Outpatient (CLI) | payer MEDICARE ==
--- NOTE | 2018-09-29 11:15 | Cat Scan Report ---
CT CHEST WITHOUT CONTRAST INDICATION / CLINICAL INFORMATION: C34.12/MALIGANT NEOPLASM LEFT UPPER LOBE-LUNG,BRONCHUS. TECHNIQUE: Axial CT images were obtained through the chest without contrast. Sagittal and coronal reformatted im ages. All CT scans at this location are performed using CT dose reduction for ALARA by means of autom ated exposure control. COMPARISON: CT chest without contrast report dated 07/14/2017 FINDINGS: HEART: The heart is normal size. Mild coronary artery calcifications are noted. No pericardial effusi on. THORACIC AORTA: Moderate calcific plaques are identified throughout the thoracic aorta. No aneurysm. MEDIASTINUM and NASEEM: No significant abnormality. LUNGS: Moderate to severe centrilobular emphysematous changes are identified in both upper lobes. Sma ll subpleural density in the lateral lingula measuring 1.1 x 0.5 cm appears unchanged since the previ ous report. This has the appearance of focal subpleural scarring. Similar appearing linear scarring i s noted in the inferior lingula and medial right middle lobe. There is also a 5 mm density in the pos terior left upper lobe on image 17 which is indeterminate. No definite suspicious pulmonary mass has developed. PLEURA: No significant pleural effusion. No pneumothorax. SKELETAL SYSTEM: The bony structures are demineralized. No fracture or suspicious bony lesion is iden tified UPPER ABDOMEN: No significant abnormality. ADDITIONAL FINDINGS: None. IMPRESSION: Moderate to severe emphysematous changes. Focal lung densities in the left upper lobe as described above which overall have a benign appearance . Consider follow-up in 6 months. No acute cardiopulmonary process is identified. Signer Name: Jaison Crespo Jr, MD Signed: 09/29/2018 11:10 AM Workstation Name: [id number]
== END 2018-09-29 09:39 | disposition home or self-care (01) ==
LOC: CT 09:38
PROVIDERS: ATTEND Radiology Radiation Oncology
DX: J43.9 Emphysema, unspecified (principal); I25.10 Atherosclerotic heart disease of native coronary artery without angina pectoris; I10 Essential (primary) hypertension; E78.00 Pure hypercholesterolemia, unspecified; Z90.89 Acquired absence of other organs; Z90.710 Acquired absence of both cervix and uterus
CPT/HCPCS: 71250

== ENCOUNTER 2018-11-22 09:08 | Outpatient (CLI) | payer MEDICARE ==
[2018-11-22 10:28] LABS: Basophils % (Auto) 0.2 % (0.0-1.8); Eosinophils # (Auto) 0.2 K/mm3 (0.0-0.4); Eosinophils % (Auto) 2.5 % (0.0-4.3); Hematocrit 34.6 % (30.3-42.9); Hemoglobin 11.3 gm/dl (10.1-14.3); Lymphocytes % (Auto) 24.4 % (13.4-35.0); Mean Corpuscular HGB Conc 33 % (30-34); Mean Corpuscular Volume 89 fl (79-97); Monocytes # (Auto) 0.7 K/mm3 (0.0-0.8); Monocytes % (Auto) 8.6 % (0.0-7.3); Platelet Count 320 K/mm3 (140-440); Red Blood Count 3.88 M/mm3 (3.65-5.03); Red Cell Distribution Width 15.3 % (13.2-15.2)
[2018-11-22 10:43] LABS: Alanine Aminotransferase 10 units/L (7-56); Albumin 4.4 g/dL (3.9-5); BUN/Creatinine Ratio 17; Blood Urea Nitrogen 15 mg/dL (7-17); Calcium 10.1 mg/dL (8.4-10.2); Chol/HDL Ratio 2.09 %; HDL Cholesterol 83 mg/dL (40-59); Hemolysis Index 0; LDL Cholesterol,Direct 85 mg/dL (50-130)
[2018-11-28 05:53] LABS: Vitamin D, 25-OH, D2 11 ng/mL
== END 2018-11-22 09:09 | disposition home or self-care (01) ==
LOC: LAB 09:08
PROVIDERS: ATTEND Internal Medicine
DX: Z13.1 Encounter for screening for diabetes mellitus (principal); Z13.21 Encounter for screening for nutritional disorder; E55.9 Vitamin D deficiency, unspecified; E78.5 Hyperlipidemia, unspecified; I10 Essential (primary) hypertension; E78.00 Pure hypercholesterolemia, unspecified; R79.89 Other specified abnormal findings of blood chemistry; J43.9 Emphysema, unspecified; Z90.710 Acquired absence of both cervix and uterus
CPT/HCPCS: 36415; 80053; 80061; 82306; 82607; 83036; 84443; 85025

== ENCOUNTER 2018-12-14 11:19 | Outpatient (CLI) | payer MEDICARE ==
--- NOTE | 2018-12-14 12:55 | Cat Scan Report ---
CT ABDOMEN AND PELVIS WITHOUT CONTRAST HISTORY: R10.9 UNSPECIFIED ABDOMINAL PAIN COMPARISON: None. TECHNIQUE: Axial CT images were obtained through the abdomen and pelvis without IV contrast. Sagittal and coronal reformatted images. All CT scans at this location are performed using CT dose reduction for ALARA by means of automated exposure control. FINDINGS: CT ABDOMEN: Lung Bases: Clear. Normal heart size. Liver: No significant abnormality. Biliary: No significant abnormality. Spleen: No significant abnormality. Unenlarged. Pancreas: No significant abnormality. Adrenals: No significant abnormality. Kidneys: No significant abnormality. Lymphatics: No lymphadenopathy. Vasculature: Mild to moderate calcifications in the abdominal aorta and iliac arteries. No aneurysm. Bowel/Peritoneum: Oral contrast is present in the stomach and small bowel loops. There is no evidence for focal inflammation or mass. No obstruction. The colon is unopacified with contrast but appears u nremarkable. Normal appendix. CT PELVIS: : Hysterectomy changes are suspected. The bladder and distal ureters are unremarkable. No adnexal a bnormality is detected. Osseous Structures: Mild osteopenia is suspected. Chronic appearing superior endplate fracture with 1 0% loss of height is suspected at T12. No acute fracture or suspicious bony lesion. Additional Findings: None IMPRESSION: No acute process is identified in the abdomen or pelvis. Hysterectomy. Mild to moderate atherosclerotic disease in the aorta and iliac arteries. Osteopenia. Probable chronic superior endplate deformity at T12. Signer Name: Jaison Crespo Jr, MD Signed: 12/14/2018 12:51 PM Workstation Name: [id number]
== END 2018-12-14 11:20 | disposition home or self-care (01) ==
LOC: CT 11:19
PROVIDERS: ATTEND Internal Medicine
DX: I70.0 Atherosclerosis of aorta (principal); M85.80 Other specified disorders of bone density and structure, unspecified site; I10 Essential (primary) hypertension; I25.10 Atherosclerotic heart disease of native coronary artery without angina pectoris; E78.00 Pure hypercholesterolemia, unspecified; J43.9 Emphysema, unspecified; Z90.710 Acquired absence of both cervix and uterus; Z87.891 Personal history of nicotine dependence
CPT/HCPCS: 74176

== ENCOUNTER 2019-04-09 10:04 | Outpatient (CLI) | payer MEDICARE ==
[2019-04-09 11:49] LABS: Blood Urea Nitrogen 11 mg/dL (7-17)
--- NOTE | 2019-04-09 15:12 | Cat Scan Report ---
CT chest w con, CT abdomen pelvis w con INDICATION: C34.12Malignant neoplasm of upper lobe, left bronchus or lung. TECHNIQUE: All CT scans at this location are performed using the following dose modulation technique: Automated exposure control. Helical slices were obtained through the chest, abdomen, pelvis following the admin istration of 100 cc of Omnipaque 300 COMPARISON: CT scan dated 12/14/2018 and 09/29/2018 FINDINGS: Chest: There is a 7 mm nodular density in the left upper lobe, series 4 image 106. This is similar in size to the prior exam but appears more solid on today's study. There is some peripheral scarring in the left upper lobe series 4 image 102. There is an AP window node which appears similar in size exa m measuring approximately 11 mm in short axis. The heart size is normal. ABDOMEN: The liver, spleen, pancreas, adrenal glands, and kidneys show no acute abnormalities atheros clerotic calcifications are noted. There is no adenopathy. Pelvis: There is no obstruction or inflammation. There are no abnormal fluid collections. On review of bone windows, there is mild superior endplate compression of T12 and L1 which appears un changed from the prior exam there is new compression of the T8 vertebral body and increased compressi on of the T9 vertebral body when compared to prior imaging is increased sclerotic change in T8, T9, a nd T12 the interval. IMPRESSION: 1. There is a 7 mm nodule in the left upper lobe the lung. This appears more solid on today's and may have some concerning finding. The overall size has not significantly changed since September. 2. There are healing rib fractures on the left with some callus formation. There is some parenchymal density in the adjacent left upper lobe the lung which likely represents scar 3. There is bullous disease in the lungs. There is hyperinflation of the lungs. 4. There are several superior endplate compression fractures in the spine which have mildly worsened in the interval. No retropulsed fragments are seen . There is atherosclerotic disease. Signer Name: Imtiaz Fields MD Signed: 04/09/2019 3:08 PM Workstation Name: [id number]
== END 2019-04-09 10:05 | disposition home or self-care (01) ==
LOC: CT 10:04
PROVIDERS: ATTEND Radiology Radiation Oncology
DX: C34.12 Malignant neoplasm of upper lobe, left bronchus or lung (principal); R91.1 Solitary pulmonary nodule; L13.8 Other specified bullous disorders; Z87.81 Personal history of (healed) traumatic fracture
CPT/HCPCS: 36415; 71260; 74177; 82565; 84520; Q9967

== ENCOUNTER 2019-10-03 09:23 | Outpatient (CLI) | payer MEDICARE ==
[2019-10-03 10:53] LABS: Blood Urea Nitrogen 10 mg/dL (7-17)
--- NOTE | 2019-10-03 12:43 | Cat Scan Report ---
CT CHEST ABDOMEN AND PELVIS WITH CONTRAST INDICATION / CLINICAL INFORMATION: C34.12 Malignant neoplasm of upper lobe, left bronchus or lung. TECHNIQUE: Axial CT images were obtained through the chest, abdomen and pelvis after Omnipaque 300 milligrams p ercent 100 cc IV contrast. All CT scans at this location are performed using CT dose reduction for A FRANCI by means of automated exposure control. COMPARISON: Previous exam dated April 09, 2019 FINDINGS: HEART: No significant abnormality. THORACIC AORTA: Atherosclerotic plaques present with calcifications thoracic aorta MEDIASTINUM and NASEEM: Marked enlargement in the lymph node aortic pulmonary window (Station 4 mL). Th e lymph node measures 3 cm in short axis and on previous exam measured 1.2 cm in short axis LUNGS: Chronic lung disease is again noted. Persistent 7 mm pulmonary nodule left upper lobe best del ineated image 120 series 4 PLEURA: No significant pleural effusion. No pneumothorax. LIVER: No significant abnormality. GALLBLADDER: No significant abnormality. BILE DUCTS: No significant abnormality. PANCREAS: No significant abnormality. SPLEEN: No significant abnormality. ADRENALS: Not identified RIGHT KIDNEY and URETER: No significant abnormality. LEFT KIDNEY and URETER: No significant abnormality. STOMACH and SMALL BOWEL: No significant abnormality. COLON: No significant abnormality. APPENDIX: Not identified PERITONEUM: No free fluid. No free air. No fluid collection. LYMPH NODES: No significant adenopathy. AORTA and ARTERIES: Atherosclerotic calcified plaque abdominal aorta is major branches IVC and VEINS: No significant abnormality. URINARY BLADDER: No significant abnormality. REPRODUCTIVE ORGANS: No significant abnormality. ADDITIONAL FINDINGS: None. SKELETAL SYSTEM: Bones are osteopenic with several compressed midthoracic, lower thoracic and upper l umbar vertebral bodies IMPRESSION: 1. Enlarging mediastinal mass consistent with neoplastic process 2. Stable 7 mm pulmonary nodule left upper lobe 3. Multiple compressed vertebral bodies are age difficult determine. Signer Name: Jw Freeman MD Signed: 10/03/2019 12:38 PM Workstation Name: [id number]
--- NOTE | 2019-10-03 12:43 | Cat Scan Report ---
CT CHEST ABDOMEN AND PELVIS WITH CONTRAST INDICATION / CLINICAL INFORMATION: C34.12 Malignant neoplasm of upper lobe, left bronchus or lung. TECHNIQUE: Axial CT images were obtained through the chest, abdomen and pelvis after Omnipaque 300 milligrams p ercent 100 cc IV contrast. All CT scans at this location are performed using CT dose reduction for A FRANCI by means of automated exposure control. COMPARISON: April 09, 2019 FINDINGS: HEART: No significant abnormality. THORACIC AORTA: Atherosclerotic plaques present with calcifications thoracic aorta MEDIASTINUM and NASEEM: Marked enlargement in the lymph node aortic pulmonary window (Station 4 mL). Th e lymph node measures 3 cm in short axis and on previous exam measured 1.2 cm in short axis LUNGS: Chronic lung disease is again noted. Persistent 7 mm pulmonary nodule left upper lobe best del ineated image 120 series 4 PLEURA: No significant pleural effusion. No pneumothorax. LIVER: No significant abnormality. GALLBLADDER: No significant abnormality. BILE DUCTS: No significant abnormality. PANCREAS: No significant abnormality. SPLEEN: No significant abnormality. ADRENALS: No significant abnormality. RIGHT KIDNEY and URETER: No significant abnormality. LEFT KIDNEY and URETER: No significant abnormality. STOMACH and SMALL BOWEL: No significant abnormality. COLON: No significant abnormality. APPENDIX: Not identified PERITONEUM: No free fluid. No free air. No fluid collection. LYMPH NODES: No significant adenopathy. AORTA and ARTERIES: Atherosclerotic calcified plaque abdominal aorta is major branches IVC and VEINS: No significant abnormality. URINARY BLADDER: No significant abnormality. REPRODUCTIVE ORGANS: No significant abnormality. ADDITIONAL FINDINGS: None. SKELETAL SYSTEM: Bones are osteopenic with several compressed midthoracic, lower thoracic and upper l umbar vertebral bodies IMPRESSION: 1. Enlarging mediastinal mass consistent with neoplastic process 2. Stable 7 mm pulmonary nodule left upper lobe 3. Multiple compressed vertebral bodies are age difficult determine. Signer Name: Jw Freeman MD Signed: 10/03/2019 12:39 PM Workstation Name: [id number]
== END 2019-10-03 09:24 | disposition home or self-care (01) ==
LOC: CT 09:23
PROVIDERS: ATTEND Radiology Radiation Oncology
DX: C34.12 Malignant neoplasm of upper lobe, left bronchus or lung (principal); R91.1 Solitary pulmonary nodule; I25.10 Atherosclerotic heart disease of native coronary artery without angina pectoris
CPT/HCPCS: 36415; 71260; 74177; 82565; 84520; Q9967